=== PATIENT | male | born 1995 ===

== ENCOUNTER 2017-04-10 08:54 | Emergency (ER) | payer OTHER ==
[2017-04-10 09:43] VITALS: BMI 20.7
--- NOTE | 2017-04-10 10:38 | C.PDOC ---
History Of Present Illness 21 y/o male presents to ED with complaints of cough, body aches, chills and malaise for 2 days. Patient states he works overnight, was unable to work last night secondary to symptoms and came to ED for evaluation. Patient denies fever , neck pain, neck stiffness, nausea, vomiting or any other complaints at this time. Time Seen by Provider: 04/10/17 09:44 Chief Complaint (Nursing): Flu-like Symptoms History Per: Patient History/Exam Limitations: no limitations Onset/Duration Of Symptoms: Days Current Symptoms Are (Timing): Still Present Past Medical History Reviewed: Historical Data, Nursing Documentation, Vital Signs Vital Signs: Last Vital Signs Temp 99.3 F 04/10/17 09:34 Pulse 95 H 04/10/17 09:34 Resp 16 04/10/17 09:34 BP 130/84 04/10/17 09:34 Pulse Ox 99 04/10/17 10:40 - Medical History PMH: No Chronic Diseases Surgical History: No Surg Hx Family History: States: No Known Family Hx - Social History Hx Alcohol Use: No Hx Substance Use: Yes - Immunization History Hx Tetanus Toxoid Vaccination: No Hx Influenza Vaccination: No Hx Pneumococcal Vaccination: No Review Of Systems Constitutional: Positive for: Chills, Malaise. Negative for: Fever Respiratory: Positive for: Cough Gastrointestinal: Negative for: Nausea, Vomiting Skin: Negative for: Rash Physical Exam - Physical Exam Appears: Non-toxic, No Acute Distress Skin: Warm, Dry, No Rash Head: Atraumatic, Normacephalic Eye(s): bilateral: Normal Inspection Ear(s): Bilateral: Normal Oral Mucosa: Moist Throat: Normal, No Erythema, No Exudate Neck: Supple Cardiovascular: Rhythm Regular Respiratory: Normal Breath Sounds, No Rales, No Rhonchi, No Wheezing Gastrointestinal/Abdominal: Soft, No Tenderness, No Guarding, No Rebound Neurological/Psych: Oriented x3 ED Course And Treatment O2 Sat by Pulse Oximetry: 99 (RA) Pulse Ox Interpretation: Normal Medical Decision Making Medical Decision Making: Plan: Motrin, Tylenol, Tamaflu given Disposition Counseled Patient/Family Regarding: Diagnosis, Need For Followup, Rx Given - Disposition Referrals: [facility] [Outside] Disposition: HOME/ ROUTINE Disposition Time: 10:51 Condition: STABLE Prescriptions: Ibuprofen [Motrin] 600 mg PO TID #15 tab Oseltamivir [Tamiflu] 1 cap PO BID #10 cap Instructions: Influenza (ED) Forms: [facility] (Pashto), General Discharge Instructions, Work Excuse - POA Present On Arrival: None - Clinical Impression Clinical Impression: Influenza-like illness - Scribe Statement The provider has reviewed the documentation as recorded by the Atulibcheyenne Umanzor All medical record entries made by the Atulibe were at my direction and personally dictated by me. I have reviewed the chart and agree that the record accurately reflects my personal performance of the history, physical exam, medical decision making, and the department course for this patient. I have also personally directed, reviewed, and agree with the discharge instructions and disposition.
[2017-04-10 11:19] VITALS: BP 145/78; PULSE 102; RESP 20; TEMP 99; O2SAT 100
== END 2017-04-10 11:10 | disposition home or self-care (01) ==
LOC: C.ER 08:54
DX: J11.1 Influenza due to unidentified influenza virus with other respiratory manifestations (principal)

== ENCOUNTER 2017-05-24 04:02 | Emergency (ER) | payer OTHER ==
[2017-05-24 04:02] VITALS: BMI 20.7
[2017-05-24] MEDS ORDERED: Sodium Chloride 0.9% 1,000 ML IV ONE (04:35)
--- NOTE | 2017-05-24 04:35 | C.PDOC ---
History Of Present Illness Patient presents to ED with complaints of abdominal pain associated with vomiting and nausea that began yesterday. Ana is not tolerating PO. Denies any other physical complaints. Time Seen by Provider: 05/24/17 04:35 Chief Complaint (Nursing): Abdominal Pain History Per: Patient History/Exam Limitations: no limitations Onset/Duration Of Symptoms: Days (1) Current Symptoms Are (Timing): Still Present Severity: Moderate Pain Scale Rating Of: 4 Radiation Of Pain To:: None Quality Of Discomfort: Unable To Describe Associated Symptoms: Nausea, Vomiting. denies: Fever, Chills, Urinary Symptoms Exacerbating Factors: None Alleviating Factors: None Recent travel outside of the [place]: No Past Medical History Reviewed: Historical Data, Nursing Documentation, Vital Signs Vital Signs: Last Vital Signs Temp 97.7 F 05/24/17 04:09 Pulse 66 05/24/17 05:50 Resp 16 05/24/17 05:50 BP 102/64 05/24/17 05:50 Pulse Ox 97 05/24/17 05:50 - Medical History PMH: Kidney Stones Surgical History: No Surg Hx Family History: States: No Known Family Hx - Social History Hx Alcohol Use: Yes Hx Substance Use: Yes - Immunization History Hx Tetanus Toxoid Vaccination: No Hx Influenza Vaccination: No Hx Pneumococcal Vaccination: No Review Of Systems Constitutional: Negative for: Fever, Chills Gastrointestinal: Positive for: Nausea, Vomiting, Abdominal Pain. Negative for : Diarrhea Neurological: Negative for: Weakness, Numbness Psych: Negative for: Suicidal ideation Physical Exam - Physical Exam Appears: Non-toxic Skin: Warm, Dry Head: Normacephalic Eye(s): bilateral: Normal Inspection Oral Mucosa: Moist Neck: Supple Chest: Symmetrical, No Tenderness Cardiovascular: Rhythm Regular Respiratory: No Decreased Breath Sounds, No Rales, No Rhonchi, No Wheezing Gastrointestinal/Abdominal: Soft, Tenderness (mild epigastric ), No Distention, No Guarding, No Rebound Neurological/Psych: Oriented x3, Normal Speech, Normal Cognition ED Course And Treatment - Laboratory Results Result Diagrams: 05/24/17 04:50 05/24/17 04:50 O2 Sat by Pulse Oximetry: 100 (RA) Pulse Ox Interpretation: Normal Progress Note: Administered Pepcid, Toradol, Zofran and IV fluids. Ordered blood work and urinalysis. Disposition Counseled Patient/Family Regarding: Studies Performed, Diagnosis - Disposition Disposition Time: 04:35 Condition: FAIR Forms: [facility] (Romansh) - Clinical Impression Clinical Impression: Abdominal pain - Scribe Statement The provider has reviewed the documentation as recorded by the Scribe Socorro Celis All medical record entries made by the Scribe were at my direction and personally dictated by me. I have reviewed the chart and agree that the record accurately reflects my personal performance of the history, physical exam, medical decision making, and the department course for this patient. I have also personally directed, reviewed, and agree with the discharge instructions and disposition. Physician Patient Turnover Patient Signed Over To: Axel Damon Handoff Comments: pending labs and dispo
[2017-05-24] MEDS ORDERED: Sodium Chloride 0.9% 1,000 ML ONE (04:44)
[2017-05-24 04:57] LABS: BASO % 0.3 % (0.0-2.0); EOS # 0.2 K/uL (0.0-0.7); EOS % 1.4 % (0.0-4.0); HEMOGLOBIN 15.3 g/dL (12.0-18.0); LYMPH # 1.6 K/uL (1.0-4.3); LYMPH % 13.4 % (20.0-40.0); MEAN CELL VOLUME 88.4 fL (80.0-94.0); MEAN CORPUSCULAR HEMOGLOBIN 30.6 pg (27.0-31.0); MEAN CORPUSCULAR HGB CONC 34.6 g/dL (33.0-37.0); MONO # 0.9 K/uL (0.0-0.8); MONO % 7.7 % (0.0-10.0); NEUT # 9.5 K/uL (1.8-7.0); NEUT % 77.2 % (50.0-75.0); NRBC % 0.1 % (0.0-2.0); RBC 4.99 Mil/uL (4.40-5.90); RED CELL DISTRIBUTION WIDTH 13.4 % (11.5-14.5); WHITE BLOOD COUNT 12.3 K/uL (4.8-10.8)
[2017-05-24 05:06] LABS: URINE BACTERIA RARE (<OCC); URINE BILIRUBIN NEGATIVE (NEGATIVE); URINE BLOOD NEGATIVE (NEGATIVE); URINE CLARITY Turbid (Clear); URINE COLOR Yellow (YELLOW); URINE GLUCOSE (UA) NORMAL (Normal); URINE LEUKOCYTE ESTERASE NEG Leu/uL (Negative); URINE PROTEIN NEGATIVE (NEGATIVE); URINE UROBILINOGEN NORMAL mg/dL (0.2-1.0); WBC CLUMPS MOD /hpf
[2017-05-24 05:14] LABS: ALB/GLOB RATIO 1.2 (1.0-2.1); ALBUMIN 4.8 g/dL (3.5-5.0); ALT/SGPT 171 U/L (21-72); AST/SGOT 190 U/L (17-59); BLOOD UREA NITROGEN 13 mg/dL (9-20); CALCIUM 9.4 mg/dl (8.6-10.4); GFR AFRICAN-AMERICAN > 60; GFR NON-AFRICAN AMERICAN > 60; LIPASE 52 U/L (23-300)
[2017-05-24] MEDS ORDERED: Morphine 4 MG/ML VIAL ONE (05:15)
[2017-05-24] MEDS ORDERED: Iodixanol 320 MG/ML 100 ML BOTTLE IV ONE (05:54)
--- NOTE | 2017-05-24 06:46 | CT ---
EXAM: CT Abdomen and Pelvis With Intravenous Contrast CLINICAL HISTORY: 21 years old, male; Pain; Abdominal pain; Additional info: Abd pain TECHNIQUE: Axial computed tomography images of the abdomen and pelvis with intravenous contrast. All CT scans at this facility use one or more dose reduction techniques, viz.: automated exposure control; ma/kV adjustment per patient size (including targeted exams where dose is matched to indication; i.e. head); or iterative reconstruction technique. 570 images are submitted. Coronal and sagittal reformatted images were created and reviewed. CONTRAST: 100 mL of [id number] administered intravenously. COMPARISON: No relevant prior studies available. FINDINGS: Lower thorax: No acute findings. ABDOMEN: Liver: Unremarkable. No mass. Gallbladder and bile ducts: Unremarkable. No ductal dilation. Pancreas: Unremarkable. No mass. No ductal dilation. Spleen: Unremarkable. No splenomegaly. Adrenals: Unremarkable. No mass. Kidneys and ureters: Unremarkable. No solid mass. No hydronephrosis. Stomach and bowel: Large amount of stool in the colon and nonspecific right colonic thickening. Correlation with patient's clinical history of constipation versus stool related colitis versus nonspecific colitis is recommended. Possible diverticulosis. Nonspecific fluid-filled distal small bowel. Appendix: The appendix not identified with complete certainty due to unopacified cecum and distal small bowel. There is lack of intra-abdominal fat. If clinical concern remains, a repeat study with thin sections after an appropriate time interval may allow oral contrast to opacify the cecum. PELVIS: Bladder: Unremarkable. Reproductive: Possible hydrocele. ABDOMEN and PELVIS: Intraperitoneal space: Unremarkable. No free air. No significant fluid collection. Bones/joints: No acute fracture. No dislocation. Soft tissues: Unremarkable. Vasculature: Unremarkable. No abdominal aortic aneurysm. Lymph nodes: Unremarkable. No enlarged lymph nodes. IMPRESSION: 1. Large amount of stool in the colon and nonspecific right colonic thickening. Correlation with patient's clinical history of constipation versus stool related colitis versus nonspecific colitis is recommended.
[2017-05-24 06:57] VITALS: O2SAT 100
[2017-05-24 07:30] VITALS: BP 114/68; PULSE 80; RESP 18; TEMP 98
== END 2017-05-24 07:33 | disposition home or self-care (01) ==
LOC: C.ER 04:02
DX: R10.9 Unspecified abdominal pain (principal)
CPT/HCPCS: 74177; 80053; 81001; 83690; 85025; 96361; 96374; 96375; 99285; J1885; J2270; J2405; J7040; Q9967

== ENCOUNTER 2017-05-25 07:25 | Observation (INO) | payer OTHER ==
[2017-05-25 07:33] VITALS: BMI 19.7
[2017-05-25] MEDS ORDERED: Sodium Chloride 0.9% 1,000 ML IV ONE (07:54)
[2017-05-25] MEDS ORDERED: Sodium Chloride 0.9% 1,000 ML ONE (08:09)
[2017-05-25 08:14] LABS: BASO % 0.3 % (0.0-2.0); EOS % 0.2 % (0.0-4.0); HEMOGLOBIN 13.6 g/dL (12.0-18.0); LYMPH # 1.3 K/uL (1.0-4.3); LYMPH % 13.2 % (20.0-40.0); MEAN CELL VOLUME 88.7 fL (80.0-94.0); MEAN CORPUSCULAR HEMOGLOBIN 30.9 pg (27.0-31.0); MEAN CORPUSCULAR HGB CONC 34.8 g/dL (33.0-37.0); MEAN PLATELET VOLUME 8.6 fL (7.2-11.7); NEUT # 7.8 K/uL (1.8-7.0); NEUT % 76.3 % (50.0-75.0); NRBC % 0.1 % (0.0-2.0); RBC 4.39 Mil/uL (4.40-5.90); RED CELL DISTRIBUTION WIDTH 13.2 % (11.5-14.5); WHITE BLOOD COUNT 10.2 K/uL (4.8-10.8)
[2017-05-25 08:45] LABS: ALB/GLOB RATIO 1.2 (1.0-2.1); ALBUMIN 4.2 g/dL (3.5-5.0); ALT/SGPT 117 U/L (21-72); AST/SGOT 83 U/L (17-59); BLOOD UREA NITROGEN 10 mg/dL (9-20); CALCIUM 8.5 mg/dl (8.6-10.4); GFR AFRICAN-AMERICAN > 60; GFR NON-AFRICAN AMERICAN > 60; LIPASE 42 U/L (23-300)
[2017-05-25 08:51] LABS: URINE AMORPHOUS SEDIMENT MODERATE /ul (<OCC); URINE BILIRUBIN NEGATIVE (NEGATIVE); URINE BLOOD NEGATIVE (NEGATIVE); URINE CLARITY Turbid (Clear); URINE COLOR Red (YELLOW); URINE GLUCOSE (UA) NORMAL (Normal); URINE LEUKOCYTE ESTERASE NEG Leu/uL (Negative); URINE PROTEIN NEGATIVE (NEGATIVE); URINE UROBILINOGEN NORMAL mg/dL (0.2-1.0)
[2017-05-25 09:27] LABS: BARBITURATES, UR NEGATIVE (NEGATIVE); BENZODIAZEPINES, UR NEGATIVE (NEGATIVE); OPIATES, UR NEGATIVE (NEGATIVE); PHENCYCLIDINE, UR NEGATIVE (NEGATIVE)
--- NOTE | 2017-05-25 10:43 | C.PDOC ---
History Of Present Illness 21 year old male presents with PMH of kidney stone c/o abdominal pain associated with nausea and vomiting for the last 3 days. Pt was seen yesterday at [facility], had CT scan done which was consistent with constipation vs colitis. Pt went home, took mag citrate and notes having diarrhea after. Pt returns to ED today stating he unable to tolerate any PO intake at home. Otherwise, denies known sick contact, fever, chills, hematemisis, hematochezia, chest pain, headache or any other associated symptoms at this time. Time Seen by Provider: 05/25/17 07:41 Chief Complaint (Nursing): Abdominal Pain History Per: Patient History/Exam Limitations: no limitations Onset/Duration Of Symptoms: Days (2) Current Symptoms Are (Timing): Still Present Location Of Pain/Discomfort: Diffuse Radiation Of Pain To:: None Quality Of Discomfort: "Pain" Associated Symptoms: Nausea, Vomiting, Diarrhea. denies: Back Pain, Chest Pain , Urinary Symptoms Exacerbating Factors: None Alleviating Factors: None Recent travel outside of the [place]: No Additional History Per: Patient Past Medical History Reviewed: Historical Data, Nursing Documentation, Vital Signs Vital Signs: Last Vital Signs Temp 98 F 05/25/17 12:21 Pulse 90 05/25/17 12:21 Resp 16 05/25/17 12:21 BP 136/70 05/25/17 12:21 Pulse Ox 98 05/25/17 12:21 - Medical History PMH: Kidney Stones, Chronic Kidney Disease Family History: States: Diabetes, Hypertension - Social History Hx Alcohol Use: Yes Hx Substance Use: Yes (marijauna) - Immunization History Hx Tetanus Toxoid Vaccination: No Hx Influenza Vaccination: No Hx Pneumococcal Vaccination: No Review Of Systems Except As Marked, All Systems Reviewed And Found Negative. Constitutional: Negative for: Fever, Chills Gastrointestinal: Positive for: Nausea, Vomiting, Abdominal Pain, Diarrhea. Negative for: Melena, Hematochezia, Hematemesis Genitourinary: Negative for: Dysuria, Frequency, Hematuria Musculoskeletal: Negative for: Back Pain Physical Exam - Physical Exam Appears: Non-toxic, No Acute Distress Skin: Normal Color, Warm, Dry Head: Atraumatic, Normacephalic Eye(s): bilateral: Normal Inspection, EOMI Nose: Normal Oral Mucosa: Moist Neck: Normal ROM, Supple Chest: Symmetrical Cardiovascular: Rhythm Regular Respiratory: Normal Breath Sounds, No Rales, No Rhonchi, No Wheezing Gastrointestinal/Abdominal: Soft, Tenderness (diffuse), No Guarding, No Rebound Back: No CVA Tenderness, No Vertebral Tenderness Extremity: Normal ROM Neurological/Psych: Oriented x3, Normal Speech ED Course And Treatment - Laboratory Results Result Diagrams: 05/25/17 08:03 05/25/17 08:03 O2 Sat by Pulse Oximetry: 100 (RA) Pulse Ox Interpretation: Normal Progress Note: Labs and CT scan from yesterday's visit was reviewed. Blood work , UA ordered and reviewed today. Pt was given Pepcid, Toradol, Zofran, and IV fluids. On re-evaluation, pt states nausea has improved. PO challenge was ordered. Pt vomited immediately. Reglan was ordered. On re-eval, pt states abdominal pain and nausea still persists. Case discussed with Dr. Graf who agrees upon plan and admission. Disposition - Disposition Disposition: HOSPITALIZED Disposition Time: 12:00 Condition: STABLE - Clinical Impression Clinical Impression: Colitis, Constipation, Intractable vomiting - PA / LEAD COATER / Resident Statement MD/DO has reviewed & agrees with the documentation as recorded. - Scribe Statement The provider has reviewed the documentation as recorded by the Scribe Caleb Stewart All medical record entries made by the Atulibe were at my direction and personally dictated by me. I have reviewed the chart and agree that the record accurately reflects my personal performance of the history, physical exam, medical decision making, and the department course for this patient. I have also personally directed, reviewed, and agree with the discharge instructions and disposition.
--- NOTE | 2017-05-25 12:22 | CP.PCM.HP ---
History of Present Illness - History of Present Illness History of Present Illness: PGY2 Resident - Medicine H&P CC: Constipation + nausea/vomiting for the past 3 days HPI: This 21 year old Male with PMHx of +kidney stone in 2017 s/p lithotripsy + L ureter stent (removed 2 wks later) - presents c/o constipation and nausea/ vomiting for the past 3 days. His last normal BM was 1 weeks ago. Throughout last week, he became increasingly more constipated with decreasing stool caliber , to the point that he felt stomach discomfort beginning on Thr05/22/17. He went to work that day, took 1 dose of Pepto-bismol and drank 1 glass of lemon water w/salt, with no relief. Friday he woke up, vomited once, and again went to work. Friday night into Friday, he again vomited, his abdominal pain increased, spurring his 1st visit to the ED. CT abdomen showed a large qty of stool in the colon and R colonic thickening (possible colitis). He was discharged with instructions to take Mag-Citrate. He did so later that day ( friday), after which had several watery bowel movements. However, his abdominal pain persisted and he again vomited overnight, spuring his 2nd visit to the ED. Denies f/c, headache, dizziness, dysuria, sick contacts, weight change, hematemesis, or hematoschezia. Denies hx of HIV or Hepatitis. Of note, He is very active, works out daily, and reports staring Whey protein supplementation (2 scoops daily) 2 weeks ago. 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 PMHx: kidney stones 2017 s/p lithotripsy + L ureter stent PSHx: lithotripsy + L ureter stent in 2017 (removed after 2 wks) Meds: none Allergies: NKDA FamHx: Dad w/ DM, HTN; Mom healthy SocHx: Social ETOH (1 beer/mo); Quit tobacco 2yrs ago (formerly 1ppd x5yrs); + Marijuana (1 blunt per day) PMD: none Review of Systems: -Gen: denies fever, chills, headache, lethargy, weakness. -HEENT: denies dizziness, change in vision, change in hearing, sore throat, dysphagia, nasal congestion, mucous. -Cardio: denies chest pain, palpitations, lower extremity edema, orthopnea. -Resp: denies cough, dyspnea, hemoptysis, wheezing, pain on inspiration. -GI: +abdominal discomfort/fullness, +nausea/vomiting, +diarrhea/constipation; denies overt abdominal pain, hematochezia, hematemesis. -: denies dysuria, urinary freq, incontinence, hematuria, change in urinary stream. -MSK: denies back pain, muscle weakness, radiating pain. -Skin: denies itching, rash, lesions. -Neuro: denies confusion, numbness, tingling, focal weakness, radicular pain, syncope. -Psych: denies anxiety, depression, H/I, S/I, hallucinations. Present on Admission - Present on Admission Any Indicators Present on Admission: No History of DVT/PE: No History of Uncontrolled Diabetes: No Urinary Catheter: No Decubitus Ulcer Present: No Past Patient History - Infectious Disease Hx of Infectious Diseases: None - Past Social History Smoking Status: Never Smoked - RENAL Hx Chronic Kidney Disease: Yes Hx Kidney Stones: Yes - PSYCHIATRIC Hx Substance Use: Yes (maristuartuna) - SURGICAL HISTORY Hx Surgeries: No - ANESTHESIA Hx Anesthesia: No Hx Anesthesia Reactions: No Meds Allergies/Adverse Reactions: Allergies Allergy/AdvReac Type Severity Reaction Status Date / Time No Known Allergies Allergy Verified 05/25/17 07:32 Physical Exam - Constitutional Appears: Non-toxic, No Acute Distress - Head Exam Head Exam: ATRAUMATIC, NORMAL INSPECTION - Eye Exam Eye Exam: EOMI, Normal appearance, PERRL - ENT Exam ENT Exam: Mucous Membranes Dry - Neck Exam Neck exam: Negative for: Lymphadenopathy - Respiratory Exam Respiratory Exam: Clear to Auscultation Bilateral, NORMAL BREATHING PATTERN. absent: Wheezes - Cardiovascular Exam Cardiovascular Exam: REGULAR RHYTHM, +S1, +S2, Systolic Murmur (holocystolic murmer at apex) - GI/Abdominal Exam GI & Abdominal Exam: Guarding, Hyperactive Bowel Sounds, Soft, Tenderness (deep pressure sensation to palpation, no overt tenderness). absent: Distended - Extremities Exam Extremities exam: Positive for: normal inspection. Negative for: pedal edema, tenderness - Back Exam Back exam: NORMAL INSPECTION. absent: CVA tenderness (L), CVA tenderness (R) - Neurological Exam Neurological exam: Alert, CN II-XII Intact, Oriented x3 - Psychiatric Exam Psychiatric exam: Normal Affect, Normal Mood - Skin Skin Exam: Dry, Intact, Normal Color, Warm Results - Vital Signs Recent Vital Signs: Last Vital Signs Temp 98.2 F 05/25/17 11:25 Pulse 75 05/25/17 11:25 Resp 14 05/25/17 11:25 BP 130/70 05/25/17 11:25 Pulse Ox 98 05/25/17 11:25 - Labs Result Diagrams: 05/25/17 08:03 05/25/17 08:03 Labs: Laboratory Results - last 24 hr 05/25/17 05/25/17 05/25/17 08:03 08:03 08:17 WBC 10.2 RBC 4.39 L Hgb 13.6 Hct 39.0 MCV 88.7 MCH 30.9 MCHC 34.8 RDW 13.2 Plt Count 248 MPV 8.6 Neut % (Auto) 76.3 H Lymph % (Auto) 13.[address] % (Auto) 10.0 Eos % (Auto) 0.2 Baso % (Auto) 0.3 Neut # (Auto) 7.8 H Lymph # (Auto) 1.3 [place] # (Auto) 1.0 H Eos # (Auto) 0.0 Baso # (Auto) 0.0 Sodium 141 Potassium 3.9 Chloride 101 Carbon Dioxide 26 Anion Gap 17 BUN 10 Creatinine 0.9 Est GFR ( Amer) > 60 Est GFR (Non-Af Amer) > 60 Random Glucose 108 Calcium 8.5 L Total Bilirubin 0.8 AST 83 H D ALT 117 H D Alkaline Phosphatase 47 Total Protein 7.5 Albumin 4.2 Globulin 3.3 Albumin/Globulin Ratio 1.2 Lipase 42 Urine Color Red Urine Clarity Turbid Urine pH 9.0 Ur Specific [place] 1.013 Urine Protein Negative Urine Glucose (UA) Normal Urine Ketones Negative Urine Blood Negative Urine Nitrate Negative Urine Bilirubin Negative Urine Urobilinogen Normal Ur Leukocyte Esterase Neg Urine RBC (Auto) 1 Amorphous Sediment Moderate H Urine Opiates Screen Urine Methadone Screen Ur Barbiturates Screen Ur Phencyclidine Scrn Ur Amphetamines Screen U Benzodiazepines Scrn U Oth Cocaine Metabols U Cannabinoids Screen Alcohol, Quantitative < 10 05/25/17 08:17 WBC RBC Hgb Hct MCV MCH MCHC RDW Plt Count MPV Neut % (Auto) Lymph % (Auto) [place] % (Auto) Eos % (Auto) Baso % (Auto) Neut # (Auto) Lymph # (Auto) [place] # (Auto) Eos # (Auto) Baso # (Auto) Sodium Potassium Chloride Carbon Dioxide Anion Gap BUN Creatinine Est GFR ( Amer) Est GFR (Non-Af Amer) Random Glucose Calcium Total Bilirubin AST ALT Alkaline Phosphatase Total Protein Albumin Globulin Albumin/Globulin Ratio Lipase Urine Color Urine Clarity Urine pH Ur Specific [place] Urine Protein Urine Glucose (UA) Urine Ketones Urine Blood Urine Nitrate Urine Bilirubin Urine Urobilinogen Ur Leukocyte Esterase Urine RBC (Auto) Amorphous Sediment Urine Opiates Screen Negative Urine Methadone Screen Negative Ur Barbiturates Screen Negative Ur Phencyclidine Scrn Negative Ur Amphetamines Screen Negative U Benzodiazepines Scrn Negative U Oth Cocaine Metabols Negative U Cannabinoids Screen Positive H Alcohol, Quantitative Assessment & Plan - Assessment and Plan (Free Text) Assessment: Intractable Nausea / Vomiting * Zofran 4mg IVP q6H prn, n/v * Reglan 10mg IVP q6H prn, n/v * Alternate every 3 hours * CLD; advance as tolerated * UDS: +marijuana * Status- acute Stool in Colon / Possible Colitis * Patient very constipated * Prune juice as tolerated * Colace 100mg PO TID * Cipro 400mg IVPB Q12H * Flagyl 500mg IVPB Q8H * D/C whey protein as this may cause constipation in certain individuals * Status- acute Diarrhea * f/u c.diff, stool culture, ova/parasites x3 * D/C mag-citrate * possible exposure to salmonella via raw chicken/tuna * Status- acute Marijuana Use * advised to abstain from marijuana use Transaminitis * AST 83H / ALT 117H * f/u Hep panel, HIV panel * possible exposure to salmonella via raw chicken/tuna * Status- acute Prophylaxis * Protonix 40mg IVP qD * SCDs * DVT risk score = 0; no anticoagulation needed. Code status - full code Contact / Decision maker if pt looses capacity: Shasha Velasquez (cousin): Case discussed with Dr. Yung Stewart. Sukumar Arenas, PGY2 - Date & Time Date: 05/25/17 Time: 12:20
[2017-05-25] MEDS: metroNIDAZOLE IV 500 mg/100 ml 500 MG/100 ML BAG IVPB SCH ×2 (14:16→21:00)
[2017-05-25] MEDS: Ciprofloxacin 400mg/200ml D5W 400 MG/200 ML BAG IVPB SCH (14:17)
[2017-05-25] MEDS: Sodium Chloride 0.9% 1,000 ML IV SCH ×2 (14:17→23:53)
[2017-05-25 16:05] VITALS: RESP 20
[2017-05-26] MEDS: Ciprofloxacin 400mg/200ml D5W 400 MG/200 ML BAG IVPB SCH (01:05)
[2017-05-26] MEDS: Sodium Chloride 0.9% 1,000 ML IV SCH ×2 (02:45→09:38)
[2017-05-26] MEDS: metroNIDAZOLE IV 500 mg/100 ml 500 MG/100 ML BAG IVPB SCH (05:53)
[2017-05-26 07:32] LABS: BASO % 0.6 % (0.0-2.0); EOS # 0.1 K/uL (0.0-0.7); EOS % 2.1 % (0.0-4.0); HEMOGLOBIN 13.1 g/dL (12.0-18.0); LYMPH # 1.8 K/uL (1.0-4.3); LYMPH % 32.1 % (20.0-40.0); MEAN CELL VOLUME 89.9 fL (80.0-94.0); MEAN CORPUSCULAR HEMOGLOBIN 31.4 pg (27.0-31.0); MEAN CORPUSCULAR HGB CONC 34.9 g/dL (33.0-37.0); MEAN PLATELET VOLUME 8.9 fL (7.2-11.7); MONO # 0.7 K/uL (0.0-0.8); MONO % 13.2 % (0.0-10.0); NEUT # 2.9 K/uL (1.8-7.0); RBC 4.18 Mil/uL (4.40-5.90); RED CELL DISTRIBUTION WIDTH 13.3 % (11.5-14.5); WHITE BLOOD COUNT 5.6 K/uL (4.8-10.8)
[2017-05-26 07:48] LABS: ALB/GLOB RATIO 1.3 (1.0-2.1); ALBUMIN 3.8 g/dL (3.5-5.0); ALT/SGPT 85 U/L (21-72); AST/SGOT 45 U/L (17-59); BLOOD UREA NITROGEN 9 mg/dL (9-20); CALCIUM 8.8 mg/dl (8.6-10.4); GFR AFRICAN-AMERICAN > 60; GFR NON-AFRICAN AMERICAN > 60
[2017-05-26 08:02] VITALS: BP 101/52; PULSE 77; TEMP 97.6; O2SAT 97
[2017-05-26 08:27] LABS: HEPATITIS B SURFACE AG Negative (NEGATIVE)
[2017-05-26 08:33] LABS: HEPATITIS A IGM NEGATIVE (NEGATIVE); HEPATITIS B CORE AB NEGATIVE (NEGATIVE)
[2017-05-26 08:45] LABS: HEPATITIS C ANTIBODY NEGATIVE (NEGATIVE)
--- NOTE | 2017-05-26 12:40 | CARD ---
APPROVED REPORT EKG Measurement Heart [id number] <Conclusion> Normal sinus rhythm Normal ECG
--- NOTE | 2017-05-26 13:10 | CP.PCM.DIS ---
<Candido Velasco - Last Filed: 05/26/17 13:32> Provider - Provider Date of Admission: 05/25/17 10:49 Attending physician: Sukumar Graf DO Primary care physician: PMD: none Time Spent in preparation of Discharge (in minutes): 38 Hospital Course - Lab Results Lab Results: Most Recent Lab Values WBC 5.6 K/uL (4.8-10.8) 05/26/17 07:24 RBC 4.18 Mil/uL (4.40-5.90) L 05/26/17 07:24 Hgb 13.1 g/dL (12.0-18.0) 05/26/17 07:24 Hct 37.6 % (35.0-51.0) 05/26/17 07:24 MCV 89.9 fL (80.0-94.0) 05/26/17 07:24 MCH 31.4 pg (27.0-31.0) H 05/26/17 07:24 MCHC 34.9 g/dL (33.0-37.0) 05/26/17 07:24 RDW 13.3 % (11.5-14.5) 05/26/17 07:24 Plt Count 227 K/uL (130-400) 05/26/17 07:24 MPV 8.9 fL (7.2-11.7) 05/26/17 07:24 Neut % (Auto) 52.0 % (50.0-75.0) 05/26/17 07:24 Lymph % (Auto) 32.1 % (20.0-40.0) 05/26/17 07:24 Cecil % (Auto) 13.2 % (0.0-10.0) H 05/26/17 07:24 Eos % (Auto) 2.1 % (0.0-4.0) 05/26/17 07:24 Baso % (Auto) 0.6 % (0.0-2.0) 05/26/17 07:24 Neut # (Auto) 2.9 K/uL (1.8-7.0) 05/26/17 07:24 Lymph # (Auto) 1.8 K/uL (1.0-4.3) 05/26/17 07:24 Cecil # (Auto) 0.7 K/uL (0.0-0.8) 05/26/17 07:24 Eos # (Auto) 0.1 K/uL (0.0-0.7) 05/26/17 07:24 Baso # (Auto) 0.0 K/uL (0.0-0.2) 05/26/17 07:24 Sodium 142 mmol/L (132-148) 05/26/17 07:24 Potassium 4.1 mmol/L (3.6-5.2) 05/26/17 07:24 Chloride 106 mmol/L (98-107) 05/26/17 07:24 Carbon Dioxide 25 mmol/L (22-30) 05/26/17 07:24 Anion Gap 16 (10-20) 05/26/17 07:24 BUN 9 mg/dL (9-20) 05/26/17 07:24 Creatinine 0.8 mg/dL (0.8-1.5) 05/26/17 07:24 Est GFR ( Amer) > 60 05/26/17 07:24 Est GFR (Non-Af Amer) > 60 05/26/17 07:24 Random Glucose 88 mg/dL (75-110) 05/26/17 07:24 Calcium 8.8 mg/dl (8.6-10.4) 05/26/17 07:24 Phosphorus 2.9 mg/dL (2.5-4.5) 05/26/17 07:24 Magnesium 1.8 mg/dL (1.6-2.3) 05/26/17 07:24 Total Bilirubin 0.8 mg/dL (0.2-1.3) 05/26/17 07:24 AST 45 U/L (17-59) 05/26/17 07:24 ALT 85 U/L (21-72) H D 05/26/17 07:24 Alkaline Phosphatase 39 U/L (38-126) 05/26/17 07:24 Total Protein 6.7 g/dL (6.3-8.3) 05/26/17 07:24 Albumin 3.8 g/dL (3.5-5.0) 05/26/17 07:24 Globulin 2.8 gm/dL (2.2-3.9) 05/26/17 07:24 Albumin/Globulin Ratio 1.3 (1.0-2.1) 05/26/17 07:24 Lipase 42 U/L (23-300) 05/25/17 08:03 Urine Color Red (YELLOW) 05/25/17 08:17 Urine Clarity Turbid (Clear) 05/25/17 08:17 Urine pH 9.0 (5.0-8.0) 05/25/17 08:17 Ur Specific Manvel 1.013 (1.003-1.030) 05/25/17 08:17 Urine Protein Negative mg/dL (NEGATIVE) 05/25/17 08:17 Urine Glucose (UA) Normal mg/dL (Normal) 05/25/17 08:17 Urine Ketones Negative mg/dL (NEGATIVE) 05/25/17 08:17 Urine Blood Negative (NEGATIVE) 05/25/17 08:17 Urine Nitrate Negative (NEGATIVE) 05/25/17 08:17 Urine Bilirubin Negative (NEGATIVE) 05/25/17 08:17 Urine Urobilinogen Normal mg/dL (0.2-1.0) 05/25/17 08:17 Ur Leukocyte Esterase Neg Sandee/uL (Negative) 05/25/17 08:17 Urine RBC (Auto) 1 /hpf (0-3) 05/25/17 08:17 Amorphous Sediment Moderate /ul (<OCC) H 05/25/17 08:17 Urine Opiates Screen Negative (NEGATIVE) 05/25/17 08:17 Urine Methadone Screen Negative (NEGATIVE) 05/25/17 08:17 Ur Barbiturates Screen Negative (NEGATIVE) 05/25/17 08:17 Ur Phencyclidine Scrn Negative (NEGATIVE) 05/25/17 08:17 Ur Amphetamines Screen Negative (NEGATIVE) 05/25/17 08:17 U Benzodiazepines Scrn Negative (NEGATIVE) 05/25/17 08:17 U Oth Cocaine Metabols Negative (NEGATIVE) 05/25/17 08:17 U Cannabinoids Screen Positive (NEGATIVE) H 05/25/17 08:17 Alcohol, Quantitative < 10 mg/dl (0-10) 05/25/17 08:03 Hepatitis A IgM Ab Negative (NEGATIVE) 05/25/17 16:41 Hep Bs Antigen Negative (NEGATIVE) 05/25/17 16:41 Hep B Core IgM Ab Negative (NEGATIVE) 05/25/17 16:41 Hepatitis C Antibody Negative (NEGATIVE) 05/25/17 16:41 HIV 1&2 Antibody Screen Negative (NEGATIVE) 05/25/17 16:41 - Hospital Course Hospital Course: PGY2 Resident - Medicine H&P CC: Constipation + nausea/vomiting for the past 3 days HPI: This 21 year old Male with PMHx of +kidney stone in 2017 s/p lithotripsy + L ureter stent (removed 2 wks later) - presents c/o constipation and nausea/ vomiting for the past 3 days. His last normal BM was 1 weeks ago. Throughout last week, he became increasingly more constipated with decreasing stool caliber , to the point that he felt stomach discomfort beginning on Thr05/22/17. He went to work that day, took 1 dose of Pepto-bismol and drank 1 glass of lemon water w/salt, with no relief. Friday he woke up, vomited once, and again went to work. Friday night into Friday, he again vomited, his abdominal pain increased, spurring his 1st visit to the ED. CT abdomen showed a large qty of stool in the colon and R colonic thickening (possible colitis). He was discharged with instructions to take Mag-Citrate. He did so later that day ( friday), after which had several watery bowel movements. However, his abdominal pain persisted and he again vomited overnight, spuring his 2nd visit to the ED. Denies f/c, headache, dizziness, dysuria, sick contacts, weight change, hematemesis, or hematoschezia. Denies hx of HIV or Hepatitis. Of note, He is very active, works out daily, and reports staring Whey protein supplementation (2 scoops daily) 2 weeks ago. 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 PMHx: kidney stones 2017 s/p lithotripsy + L ureter stent PSHx: lithotripsy + L ureter stent in 2017 (removed after 2 wks) Meds: none Allergies: NKDA FamHx: Dad w/ DM, HTN; Mom healthy SocHx: Social ETOH (1 beer/mo); Quit tobacco 2yrs ago (formerly 1ppd x5yrs); + Marijuana (1 blunt per day) PMD: none HOSPITAL COURSE: This is a 21 year old male who was treated for intractable nausea/vomiting and abdominal pain and constipation. It's possible his symptoms were due to his recent diet/lifestyle changes (he recently began taking whey protein and began an intense workout regiment) OR possibly due to his daily marijuana use which has shown to disrupt GI function. He was treated with zofran, reglan and given antibiotics (cipro, flagyl). His constipation was resolved with colace, mag- citrate and prune juice. He was tolerating his diet by discharge without N/V. His LFTs were elevated on admission, they have downtrended to AST NORMAL ALT 85. CT abdomen showed a large qty of stool in the colon and R colonic thickening (possible colitis). Clinically he did not seem as if he had an infectious process (also afebrile, no leukocytosis) however he will be given 7 days of cipro and flagyl on discharge. A Hep Panel was NEGATIVE and an HIV screen was also NEGATIVE. A salmonella and c-diff test were ordered and are pending. A holosystolic murmur was suspected on physical exam - an ECHO was ordered - the official read is still pending. Urinanalysis was NEGATIVE. Lipase was NEGATIVE. Discharge Exam - Head Exam Head Exam: ATRAUMATIC, NORMAL INSPECTION - Eye Exam Eye Exam: EOMI Pupil Exam: PERRL - ENT Exam ENT Exam: Mucous Membranes Moist - Neck Exam Neck exam: Normal Inspection - Respiratory Exam Respiratory Exam: Clear to PA & Lateral, NORMAL BREATHING PATTERN. absent: Rales, Rhonchi, Wheezes - Cardiovascular Exam Cardiovascular Exam: REGULAR RHYTHM, +S1, +S2, Systolic Murmur. absent: Bradycardia, Tachycardia, JVD Additional comments: questionable holosystolic murmur at apex - GI/Abdominal Exam GI & Abdominal Exam: Normal Bowel Sounds, Soft. absent: Distended, Firm, Guarding, Rebound, Rigid, Tenderness - Rectal Exam Rectal Exam: absent: Deferred - Extremities Exam Extremities exam: normal capillary refill, normal inspection, pedal pulses present - Back Exam Back exam: NORMAL INSPECTION. absent: CVA tenderness (L), CVA tenderness (R) - Neurological Exam Neurological exam: Alert, Oriented x3 - Psychiatric Exam Psychiatric exam: Normal Affect, Normal Mood - Skin Skin Exam: Intact, Normal Color, Warm Discharge Plan - Discharge Medications Prescriptions: Ciprofloxacin 500 mg PO BID 7 Days #14 tab Metronidazole [Flagyl] 500 mg PO TID 7 Days #21 tablet - Follow Up Plan Condition: STABLE Disposition: HOME/ ROUTINE Instructions: Diarrhea in Adolescents and Adults, Ciprofloxacin (Systemic), Clear Liquid Diet, Metronidazole (Systemic), Nausea and Vomiting, Adult (DC), Acute Abdominal Pain (DC) Additional Instructions: Patient is stable for discharge. Patient is to take the following antibiotics for the next 7 days: (1) Ciproflaxacin 500mg orally twice a day - once in the morning and once at bedtime (2) Flagyl 500mg orally three times a day - once in the morning and once in the afternoon and once at bedtime Patient is to be advised that he must refrain from alcohol while taking these antibiotics. Alcohol use while taking these antibiotics could cause nausea/ vomiting/diarrhea. Patient should connect himself with a Primary Medical Doctor so he may be referred to a Manager Utilization Management (GI). A GI doctor can help him elucidate the cause of his symptoms. If symptoms worsen - patient should return to the ER. Referrals: Zara Robertson MD [Staff Provider] - <Dolores Simpson V - Last Filed: 05/26/17 21:11> Provider - Provider Date of Admission: 05/25/17 10:49 Attending physician: Sukumar Graf, Hospital Course - Lab Results Lab Results: Most Recent Lab Values WBC 5.6 K/uL (4.8-10.8) 05/26/17 07:24 RBC 4.18 Mil/uL (4.40-5.90) L 05/26/17 07:24 Hgb 13.1 g/dL (12.0-18.0) 05/26/17 07:24 Hct 37.6 % (35.0-51.0) 05/26/17 07:24 MCV 89.9 fL (80.0-94.0) 05/26/17 07:24 MCH 31.4 pg (27.0-31.0) H 05/26/17 07:24 MCHC 34.9 g/dL (33.0-37.0) 05/26/17 07:24 RDW 13.3 % (11.5-14.5) 05/26/17 07:24 Plt Count 227 K/uL (130-400) 05/26/17 07:24 MPV 8.9 fL (7.2-11.7) 05/26/17 07:24 Neut % (Auto) 52.0 % (50.0-75.0) 05/26/17 07:24 Lymph % (Auto) 32.1 % (20.0-40.0) 05/26/17 07:24 Cecil % (Auto) 13.2 % (0.0-10.0) H 05/26/17 07:24 Eos % (Auto) 2.1 % (0.0-4.0) 05/26/17 07:24 Baso % (Auto) 0.6 % (0.0-2.0) 05/26/17 07:24 Neut # (Auto) 2.9 K/uL (1.8-7.0) 05/26/17 07:24 Lymph # (Auto) 1.8 K/uL (1.0-4.3) 05/26/17 07:24 Cecil # (Auto) 0.7 K/uL (0.0-0.8) 05/26/17 07:24 Eos # (Auto) 0.1 K/uL (0.0-0.7) 05/26/17 07:24 Baso # (Auto) 0.0 K/uL (0.0-0.2) 05/26/17 07:24 Sodium 142 mmol/L (132-148) 05/26/17 07:24 Potassium 4.1 mmol/L (3.6-5.2) 05/26/17 07:24 Chloride 106 mmol/L (98-107) 05/26/17 07:24 Carbon Dioxide 25 mmol/L (22-30) 05/26/17 07:24 Anion Gap 16 (10-20) 05/26/17 07:24 BUN 9 mg/dL (9-20) 05/26/17 07:24 Creatinine 0.8 mg/dL (0.8-1.5) 05/26/17 07:24 Est GFR ( Amer) > 60 05/26/17 07:24 Est GFR (Non-Af Amer) > 60 05/26/17 07:24 Random Glucose 88 mg/dL (75-110) 05/26/17 07:24 Calcium 8.8 mg/dl (8.6-10.4) 05/26/17 07:24 Phosphorus 2.9 mg/dL (2.5-4.5) 05/26/17 07:24 Magnesium 1.8 mg/dL (1.6-2.3) 05/26/17 07:24 Total Bilirubin 0.8 mg/dL (0.2-1.3) 05/26/17 07:24 AST 45 U/L (17-59) 05/26/17 07:24 ALT 85 U/L (21-72) H D 05/26/17 07:24 Alkaline Phosphatase 39 U/L (38-126) 05/26/17 07:24 Total Protein 6.7 g/dL (6.3-8.3) 05/26/17 07:24 Albumin 3.8 g/dL (3.5-5.0) 05/26/17 07:24 Globulin 2.8 gm/dL (2.2-3.9) 05/26/17 07:24 Albumin/Globulin Ratio 1.3 (1.0-2.1) 05/26/17 07:24 Lipase 42 U/L (23-300) 05/25/17 08:03 Urine Color Red (YELLOW) 05/25/17 08:17 Urine Clarity Turbid (Clear) 05/25/17 08:17 Urine pH 9.0 (5.0-8.0) 05/25/17 08:17 Ur Specific Manvel 1.013 (1.003-1.030) 05/25/17 08:17 Urine Protein Negative mg/dL (NEGATIVE) 05/25/17 08:17 Urine Glucose (UA) Normal mg/dL (Normal) 05/25/17 08:17 Urine Ketones Negative mg/dL (NEGATIVE) 05/25/17 08:17 Urine Blood Negative (NEGATIVE) 05/25/17 08:17 Urine Nitrate Negative (NEGATIVE) 05/25/17 08:17 Urine Bilirubin Negative (NEGATIVE) 05/25/17 08:17 Urine Urobilinogen Normal mg/dL (0.2-1.0) 05/25/17 08:17 Ur Leukocyte Esterase Neg Sandee/uL (Negative) 05/25/17 08:17 Urine RBC (Auto) 1 /hpf (0-3) 05/25/17 08:17 Amorphous Sediment Moderate /ul (<OCC) H 05/25/17 08:17 Urine Opiates Screen Negative (NEGATIVE) 05/25/17 08:17 Urine Methadone Screen Negative (NEGATIVE) 05/25/17 08:17 Ur Barbiturates Screen Negative (NEGATIVE) 05/25/17 08:17 Ur Phencyclidine Scrn Negative (NEGATIVE) 05/25/17 08:17 Ur Amphetamines Screen Negative (NEGATIVE) 05/25/17 08:17 U Benzodiazepines Scrn Negative (NEGATIVE) 05/25/17 08:17 U Oth Cocaine Metabols Negative (NEGATIVE) 05/25/17 08:17 U Cannabinoids Screen Positive (NEGATIVE) H 05/25/17 08:17 Alcohol, Quantitative < 10 mg/dl (0-10) 05/25/17 08:03 Hepatitis A IgM Ab Negative (NEGATIVE) 05/25/17 16:41 Hep Bs Antigen Negative (NEGATIVE) 05/25/17 16:41 Hep B Core IgM Ab Negative (NEGATIVE) 05/25/17 16:41 Hepatitis C Antibody Negative (NEGATIVE) 05/25/17 16:41 HIV 1&2 Antibody Screen Negative (NEGATIVE) 05/25/17 16:41 Attending/Attestation - Attestation I have personally seen and examined this patient.: Yes I have fully participated in the care of the patient.: Yes I have reviewed all pertinent clinical information, including history, physical exam and plan: Yes Notes (Text): Patient seen, examined, and case discussed with certified medical asst. Patient seen during morning rounds. Patient denies nausea, denies vomitting, and reports he had bowel movement today. Patient started on new regimen by his gym bilingual trainer, first session last , he reports prior to his gym session he was feeling unwell. Patient reports he drinks a gallon of water a day, mixes his whey protein with water. Patient admits he is a heavy cannabis user, reports he has done research on it. He reports with the whey protein he doesn't feel satieated. I advised him his cannabis use encourages appetite. Patient denies psychosis/hallucinations. Patient reports he has had a recent break up with his girlfriend which has been prompting his cannabis use. Patient reports he has his last meal around 7pm, and goes to bed 11pm but reports heavy gerd. He has been recommended for PPi/H2 in the past but was afraid of side effects. I advised to him to do short frequent meals as well as increase fiber in his diet. I advised the patient to cut his cannabis use, he reports to me he is aware of the association in regards to mental illness and low grades in school. Patient given 1 week antibiotic to cover for colitis including ciprofloxacin 500mg PO BID and Flagyl 500mg PO TID. Advised to refrain from alcohol use given unfavorable adverse reaction with medications. He is recommended to follow-up in the [facility], to follow-up symptoms resolved, if patient has persistent gerd inspite of dietary modifications, may require further workup. He is advised to avoid spicy, caffeine, chocolate, fried foods to avoid irritating the stomach. Work excuse provided upon discharge. This is a summary of patient's hospitalization. Please see EMR for further details. Assessment/Plan 1) Gastroenteritis (stable) Constipation (improved) Intractable Nausea / Vomiting (resolved) * Diet advanced; tolerated no adverse side effect * CT scan report available in the EMR from day prior to admission * UDS: +marijuana * Discharged on: * 1 week antibiotic to cover for colitis including ciprofloxacin 500mg PO BID and Flagyl 500mg PO TID. Advised to refrain from alcohol use given unfavorable adverse reaction with medications. * Hepatitis negative * HIV negative * Had bowel movement-->loose 2) Marijuana Use * advised to abstain from marijuana use 3) Transaminitis * AST 83H / ALT 117H on admission * improved * Hepatitis panel: negative HIV negative 4) Prophylaxis * Protonix 40mg IVP qD * SCDs * DVT risk score = 0; no anticoagulation needed.
--- NOTE | 2017-05-26 21:08 | CARD ---
APPROVED REPORT EXAM: Two-dimensional and M-mode echocardiogram with Doppler and color Doppler. Other Information Quality : [employer] : INDICATION HOLOSYSTOLIC MURMUR AT APEX, INTRACTABLE VOMITING, COLITIS 2D DIMENSIONS IVSd1.0 (0.7-1.1cm)LVDd4.5 (3.9-5.9cm) PWd0.7 (0.7-1.1cm)LVDs3.4 (2.5-4.0cm) FS (%) 25.0 %LVEF (%)49.5 (>50%) M-Mode DIMENSIONS RVDd3.19 (2.1-3.2cm)Left Atrium (MM)3.28 (2.5-4.0cm) IVSd0.76 (0.7-1.1cm)Aortic Root2.40 (2.2-3.7cm) LVDd5.10 (4.0-5.6cm)Aortic Cusp Exc.1.78 (1.5-2.0cm) PWd0.82 (0.7-1.1cm)FS (%) 35 % LVDs3.34 (2.0-3.8cm)LVEF (%)63 (>50%) Mitral Valve MV E Ybsokblo476.4cm/sMV A Ytrlafdv86.9cm/sE/A ratio2.8 TDI E/Lateral E'0.0E/Medial E'0.0 Tricuspid Valve TR Peak Jzutafpr197nw/sTR Peak Gr.[id number] LEFT VENTRICLE The left ventricle is normal size. There is normal left ventricular wall thickness. Left ventricle systolic function is normal. The Ejection Fraction is 65-70%. There is normal LV segmental wall motion. The left ventricular diastolic function is normal. There is no ventricular septal defect visualized. RIGHT VENTRICLE The right ventricle is normal size. The right ventricular systolic function is normal. ATRIA The left atrium size is normal. The right atrium size is normal. AORTIC VALVE The aortic valve is tri-cuspid. The aortic valve is normal in structure. No aortic regurgitation is present. There is no aortic valvular stenosis. MITRAL VALVE The mitral valve is normal in structure. There is no evidence of mitral valve prolapse. Mitral regurgitation is trace to mild. ERO 0.1 cm TRICUSPID VALVE The tricuspid valve is normal in structure. There is moderate tricuspid regurgitation. There is no pulmonary hypertension. PULMONIC VALVE The pulmonary valve is normal in structure. There is trace pulmonic valvular regurgitation. GREAT VESSELS The aortic root is normal in size. The ascending aorta is normal in size. The IVC is normal in size and collapses >50% with inspiration. PERICARDIAL EFFUSION There is no pericardial effusion. <Conclusion> Left ventricle systolic function is normal. The Ejection Fraction is 65-70%. The left ventricular diastolic function is normal. Mitral regurgitation is trace to mild. ERO 0.1 cm
[2017-05-27] MEDS ORDERED: Pneumococcal 23-Valent Vaccine IM ONE (10:00)
[2017-05-28] MEDS ORDERED: Influenza Vaccine 60 mcg/0.5 mL SYR (4YR UP) IM ONE (10:00)
== END 2017-05-26 14:22 | disposition home or self-care (01) ==
LOC: C.ER 07:25 → C.9E 10:49 → C.6T 11:10
PROVIDERS: ADMIT Hospitalist; ATTEND Hospitalist
DX: K52.9 Noninfective gastroenteritis and colitis, unspecified (principal); F12.90 Cannabis use, unspecified, uncomplicated; I12.9 Hypertensive chronic kidney disease with stage 1 through stage 4 chronic kidney disease, or unspecified chronic kidney disease; E11.22 Type 2 diabetes mellitus with diabetic chronic kidney disease; K59.00 Constipation, unspecified; N18.9 Chronic kidney disease, unspecified; Z87.891 Personal history of nicotine dependence
CPT/HCPCS: 36415; 80053; 80074; 81001; 83690; 83735; 84100; 85025; 86703; 86768; 87045; 87177; 87209; 93005; 93306; 96360; 96374; 99285; C9113; G0378; G0480; J0744; J1885; J2270; J2405; J2765; J7040

== ENCOUNTER 2017-05-27 10:37 | Observation (INO) | payer OTHER, MEDICAID ==
[2017-05-27 10:38] VITALS: BMI 19.7
--- NOTE | 2017-05-27 11:33 | C.PDOC ---
History Of Present Illness This 21 year old Male with PMHx of +kidney stone in 2017 s/p lithotripsy + L ureter stent (removed 2 wks later), who presents to the ED with complaints of abdominal pain that started this morning with associated symptoms of nausea and vomiting. Patient reports that [facility] and abdominal pain; he was given thorazine, however, patient signed off AMA because he was not given pain medications. In addition, patient was just recently discharged on 05/26/17 with diagnosis of colitis and intractable vomiting. During today's encounter, patient admits to diffuse abdominal cramps> epigastric region, vomiting, nauseas, diarrhea. Chief Complaint (Nursing): Abdominal Pain History Per: Patient History/Exam Limitations: no limitations Onset/Duration Of Symptoms: Days Current Symptoms Are (Timing): Still Present Severity: Severe Pain Scale Rating Of: 9 Location: Diffuse but more localized to the epigastric region Quality: 9/10 cramping pain Reports Recently: Seen In ED, Hospitalized Recent travel outside of the [place]: No Additional History Per: Patient Past Medical History Vital Signs: Last Vital Signs Temp 98.5 F 05/27/17 13:55 Pulse 53 L 05/27/17 13:55 Resp 16 05/27/17 13:55 BP 119/72 05/27/17 13:55 Pulse Ox 100 05/27/17 13:55 - Medical History PMH: Kidney Stones, Chronic Kidney Disease Other Surgeries: 2017 s/p lithotripsy + L ureter stent (removed 2 wks later) Family History: States: Unknown Family Hx, Diabetes, Hypertension - Social History Hx Alcohol Use: Yes Hx Substance Use: Yes (linda) - Immunization History Hx Tetanus Toxoid Vaccination: No Hx Influenza Vaccination: No Hx Pneumococcal Vaccination: No Review Of Systems Constitutional: Negative for: Fever, Chills Cardiovascular: Negative for: Chest Pain, Palpitations, Orthopnea, Light Headedness Respiratory: Negative for: Shortness of Breath Gastrointestinal: Positive for: Nausea, Vomiting, Abdominal Pain, Diarrhea Neurological: Positive for: Weakness Physical Exam - Physical Exam Appears: No Acute Distress Skin: Normal Color, No Diaphoretic Head: Atraumatic, Normacephalic Eye(s): bilateral: Normal Inspection, EOMI Oral Mucosa: Moist Lips: Normal Appearing Teeth: Normal Dentition Cardiovascular: Rhythm Regular, No Murmur Respiratory: Normal Breath Sounds, No Decreased Breath Sounds, No Accessory Muscle Use, No Rhonchi, No Stridor Gastrointestinal/Abdominal: Bowel Sounds, Soft, Tenderness Extremity: No Tenderness, No Pedal Edema, No Calf Tenderness Neurological/Psych: Oriented x3, Normal Speech ED Course And Treatment - Laboratory Results Result Diagrams: 05/27/17 11:31 05/27/17 11:31 O2 Sat by Pulse Oximetry: 97 Medical Decision Making Medical Decision Making: CT abdomen/Pelvis: small free fluid in the pelvic region, moderate constipation Disposition Discussed With : Iesha Chow Doctor Will See Patient In The: ED - Disposition Disposition: HOSPITALIZED Disposition Time: 03:10 Condition: FAIR Additional Instructions: Inpatient observation Forms: [facility] (Irish) - Clinical Impression Clinical Impression: Abdominal discomfort, Vomiting
[2017-05-27 11:36] LABS: BASO % 0.3 % (0.0-2.0); EOS % 0.5 % (0.0-4.0); LYMPH # 0.8 K/uL (1.0-4.3); LYMPH % 9.7 % (20.0-40.0); MEAN CORPUSCULAR HEMOGLOBIN 30.7 pg (27.0-31.0); MEAN CORPUSCULAR HGB CONC 34.2 g/dL (33.0-37.0); MONO # 0.4 K/uL (0.0-0.8); NEUT # 6.9 K/uL (1.8-7.0); NEUT % 84.5 % (50.0-75.0); PLATELET COUNT 253 K/uL (130-400); RBC 4.56 Mil/uL (4.40-5.90); WHITE BLOOD COUNT 8.2 K/uL (4.8-10.8)
[2017-05-27 11:51] LABS: ALB/GLOB RATIO 1.3 (1.0-2.1); ALBUMIN 4.4 g/dL (3.5-5.0); ALT/SGPT 83 U/L (21-72); AST/SGOT 39 U/L (17-59); BLOOD UREA NITROGEN 8 mg/dL (9-20); CALCIUM 8.6 mg/dl (8.6-10.4); GFR AFRICAN-AMERICAN > 60; GFR NON-AFRICAN AMERICAN > 60
[2017-05-27 12:14] LABS: EOSINOPHIL 1 % (0-4); LYMPHOCYTE 7 % (20-40); MONOCYTE 6 % (0-10); NEUTROPHIL 86 % (50-75); PLATELET ESTIMATE NORMAL (NORMAL); TOTAL CELLS COUNTED 100
[2017-05-27 12:22] LABS: LIPASE 70 U/L (23-300)
[2017-05-27] MEDS ORDERED: Iohexol 350mg/ml 100 ML ONE (12:24)
[2017-05-27] MEDS ORDERED: Sodium Chloride 0.9% 500 ML IV ONE ×2 (12:30→12:47)
[2017-05-27 14:35] LABS: BARBITURATES, UR NEGATIVE (NEGATIVE); BENZODIAZEPINES, UR NEGATIVE (NEGATIVE); PHENCYCLIDINE, UR NEGATIVE (NEGATIVE)
--- NOTE | 2017-05-27 14:49 | CT ---
PROCEDURE: CT Abdomen and Pelvis with contrast HISTORY: Abdominal pain and Intractable vomiting COMPARISON: CT abdomen and pelvis with IV contrast performed 05/24/17 TECHNIQUE: Contrast dose: 100 mL Omnipaque 350 Radiation dose: Total exam DLP = 218.35 mGy-cm. This CT exam was performed using one or more of the following dose reduction techniques: Automated exposure control, adjustment of the mA and/or kV according to patient size, and/or use of iterative reconstruction technique. FINDINGS: LOWER THORAX: No visible consolidation, pleural effusion, or pneumothorax. Small hiatal hernia/distal esophageal wall thickening. LIVER: Unremarkable. GALLBLADDER AND BILE DUCTS: Unremarkable. PANCREAS: Unremarkable. SPLEEN: Unremarkable. ADRENALS: Unremarkable. KIDNEYS AND URETERS: The kidneys enhance symmetrically. No hydronephrosis or obstructing calculus identified. VASCULATURE: No aortic aneurysm. BOWEL: Stomach is nondistended. Lack of oral contrast limits evaluation for bowel pathology. Nonspecific prominent fluid filled small bowel loop in the right lower quadrant does not appear dilated. Bowel loops appear otherwise unremarkable without evidence of obstruction. Moderate constipation. APPENDIX: The appendix appears within normal limits of caliber. No secondary signs of acute appendicitis. PERITONEUM: Small pelvic free fluid. No definite free air. LYMPH NODES: No bulky adenopathy identified. BLADDER: Unremarkable. REPRODUCTIVE: Unremarkable. BONES: No acute osseous abnormality is detected. OTHER FINDINGS: None. IMPRESSION: Small pelvic free fluid, unusual in a young male patient. Nonspecific prominent fluid filled small bowel loop in the right lower quadrant. Bowel loops appear otherwise unremarkable. Moderate constipation.
[2017-05-27 14:56] LABS: OPIATES, UR POSITIVE (NEGATIVE)
[2017-05-27 15:16] LABS: URINE BILIRUBIN NEGATIVE (NEGATIVE); URINE BLOOD NEGATIVE (NEGATIVE); URINE CLARITY Clear (Clear); URINE COLOR Colorless (YELLOW); URINE GLUCOSE (UA) NORMAL (Normal); URINE LEUKOCYTE ESTERASE NEG Leu/uL (Negative); URINE PROTEIN NEGATIVE (NEGATIVE); URINE UROBILINOGEN NORMAL mg/dL (0.2-1.0)
[2017-05-27] MEDS ORDERED: Potassium Chloride 20 mEq ER Tab PO ONE ×2 (15:54→16:04)
[2017-05-27 16:05] LABS: AMYLASE 86 U/L (30-110)
--- NOTE | 2017-05-27 17:11 | CP.PCM.HP ---
<Candido Velasco - Last Filed: 05/27/17 17:08> History of Present Illness - History of Present Illness History of Present Illness: PGY1 resident - medicine H&P CC: N/V and abdominal discomfort HPI: Patient is a 21 year old male who presents for abdominal pain and vomiting. Patient was recently discharged from this hospital yesterday, after being admitted for similar complaints; while infectious process was not suspected, patient was discharged with Rx for Cipro and Flagyl. Patient was instructed to reduce cannabis use, as it could have contributed to his symptoms. Patient states that he arrived home yesterday after discharge at 3pm, smoked 1 blunt (states it was his last one), took a shower, and felt well; he ate grapes, strawberries and rice with no nausea/vomiting, took his dog out for a walk and played video games. He did not get the Rx filled for Cipro and Flagyl and thus didn't take either. He went to sleep feeling well without any complaints. Today patient woke up at 6:30am with abdominal pain, described as diffuse but worse in the lower abdomen, constant but waxing/waning, cramping, worse with breathing. He tried drinking water and Pepto-Bismol with no improvement, and subsequently vomited 6x (green/yellow/brown vomitous, non- bloody). Pain was improved for a few seconds with vomiting, but then returned. He notes feeling hot/cold, diaphoretic, and dizzy for a few seconds with the vomiting. He did not eat or drink anything else. He called the ambulance at 7: 30am, which took him to [facility]. He felt that he was was not being treated well, so he signed out AMA and took an Uber to this hospital (vomited x 4 in the Uber car). He states that he vomited multiple times here in the ED. At present, patient report nausea and abdominal discomfort. He states he just feels "desperate" to feel better. Last bowel movement was just prior to CT scan in the ED--it was a small amount of brown solid/liquid. Otherwise he denies chest pain, SOB, cough, hematochezia, melena, dysuria, leg pain/swelling, testicular pain/swelling, back pain, recent travel, sick contacts, recent illness other than this recent episode. He denies a known family history of colon CA, IBD, Celiac's disease. Denies using any other substances besides marijuana. Denies use of steroids/ testosterone/any other injections. PMHx: kidney stones 2017 s/p lithotripsy + L ureter stent PSHx: lithotripsy + L ureter stent in 2017 (removed after 2 wks) Meds: none Allergies: NKDA FamHx: Dad w/ DM, HTN; Mom healthy SocHx: Social ETOH (1 beer/mo); Quit tobacco 2yrs ago (formerly 1ppd x5yrs); + Marijuana (1 blunt per day) PMD: none Code status: Full Code No advance directive In the event that patient cannot make healthcare decisions for himself, he wants his cousin Mae Velazquez ([phone]) to make decisions for him. Present on Admission - Present on Admission Any Indicators Present on Admission: No Review of Systems - Review of Systems All systems: reviewed and no additional remarkable complaints except (as stated in HPI) Past Patient History - Infectious Disease Hx of Infectious Diseases: None - Past Social History Smoking Status: Never Smoked - RENAL Hx Chronic Kidney Disease: Yes Hx Kidney Stones: Yes - MUSCULOSKELETAL/RHEUMATOLOGICAL Hx Falls: No - PSYCHIATRIC Hx Substance Use: Yes (linda) - SURGICAL HISTORY Hx Surgeries: No - ANESTHESIA Hx Anesthesia: No Hx Anesthesia Reactions: No Meds Allergies/Adverse Reactions: Allergies Allergy/AdvReac Type Severity Reaction Status Date / Time No Known Allergies Allergy Verified 05/25/17 07:32 Physical Exam - Constitutional Appears: Well, Non-toxic, No Acute Distress - Head Exam Head Exam: ATRAUMATIC, NORMAL INSPECTION - Eye Exam Eye Exam: EOMI Pupil Exam: PERRL - ENT Exam ENT Exam: Mucous Membranes Moist - Neck Exam Neck exam: Positive for: Full Rom, Normal Inspection. Negative for: Lymphadenopathy, Tenderness - Respiratory Exam Respiratory Exam: Clear to Auscultation Bilateral, NORMAL BREATHING PATTERN. absent: Rales, Rhonchi, Wheezes - Cardiovascular Exam Cardiovascular Exam: REGULAR RHYTHM, +S1, +S2. absent: Bradycardia, Tachycardia , JVD, Systolic Murmur - GI/Abdominal Exam GI & Abdominal Exam: Normal Bowel Sounds, Soft, Tenderness. absent: Distended, Firm, Guarding, Hernia, Mass, Organomegaly, Pulsatile Mass, Rebound, Rigid Additional comments: mild tenderness to deep palpation in periumbilical region - Rectal Exam Rectal Exam: Deferred - Extremities Exam Extremities exam: Positive for: normal capillary refill, normal inspection, pedal pulses present. Negative for: calf tenderness, pedal edema, tenderness - Back Exam Back exam: NORMAL INSPECTION. absent: CVA tenderness (L), CVA tenderness (R), rash noted - Neurological Exam Neurological exam: Alert, CN II-XII Intact, Oriented x3, Reflexes Normal - Psychiatric Exam Psychiatric exam: Normal Affect, Normal Mood Additional comments: Denies suicidal ideation - Skin Skin Exam: Intact, Normal Color, Warm Results - Vital Signs Recent Vital Signs: Last Vital Signs Temp 98.5 F 05/27/17 13:55 Pulse 53 L 05/27/17 13:55 Resp 16 05/27/17 13:55 BP 119/72 05/27/17 13:55 Pulse Ox 97 05/27/17 15:11 - Labs Result Diagrams: 05/27/17 11:31 05/27/17 11:31 Labs: Laboratory Results - last 24 hr 05/27/17 05/27/17 05/27/17 11:31 11:31 12:24 WBC 8.2 RBC 4.56 Hgb 14.0 Hct 41.0 MCV 90.0 MCH 30.7 MCHC 34.2 RDW 13.0 Plt Count 253 MPV 9.0 Neut % (Auto) 84.5 H Lymph % (Auto) 9.7 L [place] % (Auto) 5.0 Eos % (Auto) 0.5 Baso % (Auto) 0.3 Neut # (Auto) 6.9 Lymph # (Auto) 0.8 L [place] # (Auto) 0.4 Eos # (Auto) 0.0 Baso # (Auto) 0.0 Neutrophils % (Manual) 86 H Lymphocytes % (Manual) 7 L Monocytes % (Manual) 6 Eosinophils % (Manual) 1 Platelet Estimate Normal Sodium 141 Potassium 3.4 L Chloride 103 Carbon Dioxide 22 Anion Gap 19 BUN 8 L Creatinine 0.8 Est GFR ( Amer) > 60 Est GFR (Non-Af Amer) > 60 Random Glucose 114 H Calcium 8.6 Magnesium 1.4 L Total Bilirubin 0.6 AST 39 ALT 83 H Alkaline Phosphatase 56 Total Protein 7.7 Albumin 4.4 Globulin 3.3 Albumin/Globulin Ratio 1.3 Amylase 86 Lipase 70 Urine Color Urine Clarity Urine pH Ur Specific [place] Urine Protein Urine Glucose (UA) Urine Ketones Urine Blood Urine Nitrate Urine Bilirubin Urine Urobilinogen Ur Leukocyte Esterase Urine WBC (Auto) Urine RBC (Auto) Urine Opiates Screen Urine Methadone Screen Ur Barbiturates Screen Ur Phencyclidine Scrn Ur Amphetamines Screen U Benzodiazepines Scrn U Oth Cocaine Metabols U Cannabinoids Screen Alcohol, Quantitative < 10 05/27/17 05/27/17 14:00 15:09 WBC RBC Hgb Hct MCV MCH MCHC RDW Plt Count MPV Neut % (Auto) Lymph % (Auto) [place] % (Auto) Eos % (Auto) Baso % (Auto) Neut # (Auto) Lymph # (Auto) [place] # (Auto) Eos # (Auto) Baso # (Auto) Neutrophils % (Manual) Lymphocytes % (Manual) Monocytes % (Manual) Eosinophils % (Manual) Platelet Estimate Sodium Potassium Chloride Carbon Dioxide Anion Gap BUN Creatinine Est GFR ( Amer) Est GFR (Non-Af Amer) Random Glucose Calcium Magnesium Total Bilirubin AST ALT Alkaline Phosphatase Total Protein Albumin Globulin Albumin/Globulin Ratio Amylase Lipase Urine Color Colorless Urine Clarity Clear Urine pH 8.0 Ur Specific [place] 1.048 H Urine Protein Negative Urine Glucose (UA) Normal Urine Ketones 1+ H Urine Blood Negative Urine Nitrate Negative Urine Bilirubin Negative Urine Urobilinogen Normal Ur Leukocyte Esterase Neg Urine WBC (Auto) < 1 Urine RBC (Auto) 1 Urine Opiates Screen Positive H Urine Methadone Screen Negative Ur Barbiturates Screen Negative Ur Phencyclidine Scrn Negative Ur Amphetamines Screen Negative U Benzodiazepines Scrn Negative U Oth Cocaine Metabols Negative U Cannabinoids Screen Positive H Alcohol, Quantitative Assessment & Plan (1) Abdominal discomfort Assessment and Plan: Patient discharged yesterday - felt well - then smoked marijuana and symptoms (N /V, abd discomfort) returned few hours later. Cyclic vomiting syndrome 2/2 to daily chronic marijuana use? Will investigate other infectious/pathological etiologies of symptoms. Left shift, no bands. Afebrile. No leukocytosis. F/U C.Diff, Stool Cx, H.Pylori NPO for now GI consult, Dr Nanette Ceron - Help appreciated * Will defer to GI regarding further imaging Meds: Cipro 400mg IV Q12H Flagyl 500mg IV Q8H NS @ 100cc/hr Zofran 4mg IVP Q12H PRN Protonix 40mg IVP QD Imaging: CT abd/pelvis w/ IV contrast 05/24/17: Large amount of stool in the colon and nonspecific right colonic thickening. Correlation with patient's clinical history of constipation versus stool related colitis versus nonspecific colitis is recommended. CT abd/pelvis w/ IV contrast 05/27/17: Small pelvic free fluid, unusual in a young male patient. Nonspecific prominent fluid filled small bowel loop in the right lower quadrant. Bowel loops appear otherwise unremarkable. Moderate constipation. F/U Abdominal Ultrasound Status: Acute Priority: High (2) Free fluid in pelvis Assessment and Plan: Denies scrotal swelling, dysuria, inguinal pain, CVA tenderness Urinalysis showed specfic gravity 1.048 and 1+ ketones F/U Urine Cx Imaging: CT abd/pelvis w/ IV contrast 05/24/17: Large amount of stool in the colon and nonspecific right colonic thickening. Correlation with patient's clinical history of constipation versus stool related colitis versus nonspecific colitis is recommended. CT abd/pelvis w/ IV contrast 05/27/17: Small pelvic free fluid, unusual in a young male patient. Nonspecific prominent fluid filled small bowel loop in the right lower quadrant. Bowel loops appear otherwise unremarkable. Moderate constipation. Status: Acute Priority: High (3) Suicidal ideation Assessment and Plan: Patient threatened to jump off aly to ER resident if not properly treated. To senior grant writer patient denied suicidal ideation. He stated he just wants relief of his symptoms. No hx of suicide attempts. Psych consult, Dr Patel Status: Acute Priority: High (4) Prophylactic measure Assessment and Plan: Protonix 40mg IVP QD Lovenox 40mg SC QD, SCDs not indicated NPO for now Status: Acute Priority: Low <Dolores Simpson V - Last Filed: 05/27/17 18:30> Results - Vital Signs Recent Vital Signs: Last Vital Signs Temp 98.4 F 05/27/17 18:15 Pulse 72 05/27/17 18:15 Resp 16 05/27/17 18:15 BP 118/64 05/27/17 18:15 Pulse Ox 100 05/27/17 18:15 - Labs Result Diagrams: 05/27/17 11:31 05/27/17 11:31 Labs: Laboratory Results - last 24 hr 05/27/17 05/27/17 05/27/17 11:31 11:31 12:24 WBC 8.2 RBC 4.56 Hgb 14.0 Hct 41.0 MCV 90.0 MCH 30.7 MCHC 34.2 RDW 13.0 Plt Count 253 MPV 9.0 Neut % (Auto) 84.5 H Lymph % (Auto) 9.7 L [place] % (Auto) 5.0 Eos % (Auto) 0.5 Baso % (Auto) 0.3 Neut # (Auto) 6.9 Lymph # (Auto) 0.8 L [place] # (Auto) 0.4 Eos # (Auto) 0.0 Baso # (Auto) 0.0 Neutrophils % (Manual) 86 H Lymphocytes % (Manual) 7 L Monocytes % (Manual) 6 Eosinophils % (Manual) 1 Platelet Estimate Normal Sodium 141 Potassium 3.4 L Chloride 103 Carbon Dioxide 22 Anion Gap 19 BUN 8 L Creatinine 0.8 Est GFR ( Amer) > 60 Est GFR (Non-Af Amer) > 60 Random Glucose 114 H Calcium 8.6 Magnesium 1.4 L Total Bilirubin 0.6 AST 39 ALT 83 H Alkaline Phosphatase 56 Total Protein 7.7 Albumin 4.4 Globulin 3.3 Albumin/Globulin Ratio 1.3 Amylase 86 Lipase 70 Urine Color Urine Clarity Urine pH Ur Specific [place] Urine Protein Urine Glucose (UA) Urine Ketones Urine Blood Urine Nitrate Urine Bilirubin Urine Urobilinogen Ur Leukocyte Esterase Urine WBC (Auto) Urine RBC (Auto) Urine Opiates Screen Urine Methadone Screen Ur Barbiturates Screen Ur Phencyclidine Scrn Ur Amphetamines Screen U Benzodiazepines Scrn U Oth Cocaine Metabols U Cannabinoids Screen Alcohol, Quantitative < 10 05/27/17 05/27/17 14:00 15:09 WBC RBC Hgb Hct MCV MCH MCHC RDW Plt Count MPV Neut % (Auto) Lymph % (Auto) [place] % (Auto) Eos % (Auto) Baso % (Auto) Neut # (Auto) Lymph # (Auto) [place] # (Auto) Eos # (Auto) Baso # (Auto) Neutrophils % (Manual) Lymphocytes % (Manual) Monocytes % (Manual) Eosinophils % (Manual) Platelet Estimate Sodium Potassium Chloride Carbon Dioxide Anion Gap BUN Creatinine Est GFR ( Amer) Est GFR (Non-Af Amer) Random Glucose Calcium Magnesium Total Bilirubin AST ALT Alkaline Phosphatase Total Protein Albumin Globulin Albumin/Globulin Ratio Amylase Lipase Urine Color Colorless Urine Clarity Clear Urine pH 8.0 Ur Specific [place] 1.048 H Urine Protein Negative Urine Glucose (UA) Normal Urine Ketones 1+ H Urine Blood Negative Urine Nitrate Negative Urine Bilirubin Negative Urine Urobilinogen Normal Ur Leukocyte Esterase Neg Urine WBC (Auto) < 1 Urine RBC (Auto) 1 Urine Opiates Screen Positive H Urine Methadone Screen Negative Ur Barbiturates Screen Negative Ur Phencyclidine Scrn Negative Ur Amphetamines Screen Negative U Benzodiazepines Scrn Negative U Oth Cocaine Metabols Negative U Cannabinoids Screen Positive H Alcohol, Quantitative Attending/Attestation - Attestation I have personally seen and examined this patient.: Yes I have fully participated in the care of the patient.: Yes I have reviewed all pertinent clinical information: Yes Notes (Text): Patient seen, examined, case discussed with medical receptionist biller. Patient seen and evaluated [place] [id number] emergency room approximately 5:40 PM. I'm familiar with the patient as a night discharged him yesterday all falling once appear to resolution of gastroenteritis. Patient was tolerating of diet and stool will starting form. Patient was discharged on by mouth antibiotics but has not filled them because he was awaiting to receive his speech check from work today. Patient reports he was doing well at home he was able to tolerate diet at home he reports he cooked, [place] rice did not use any pre- max as well as bought some strawberries grapes at his local grocery store. He was able to walk his dog no no issues. He reports he had one last blunt left and decided that he wanted to use it. He reports next morning i.e. today he had abdominal cramping discomfort which prompted him to go called the ambulance which he was taken to [facility] but left AMA because he thought the medication that they gave him worsened his nausea and vomiting. Patient reports he throughout multiple times today as well as in the Uber he took from the hospital to come here. Per discussion with the resident rotating in the emergency room as well as with nursing staff patient was very belligerent, was cursing at and at staff, and at one point threatened to walk outside into the street into traffic because he was not getting pain medication. Patient with me is quite comfortable he is already completed his abdominal ultrasound. Patient reports mild abdominal discomfort, denies nausea or vomiting vomiting at present, and reports that the stool appears to be forming. I'll given prior prior to CAT scans one from May 25 and the other from today May 27, patient did not have any by mouth contrast given his intractable nausea vomiting. Patient does show some mildly dilated small bowel loops of bowel. No in today's CAT scan did show some small free fluid in the pelvis, did order for abdominal ultrasound just to clarify which appears to minimal per their report. On my Perez exam patient has a soft belly nondistended nontender no guarding no rigidity no peritoneal signs and he is able to speak fluently and fluidly without no hesitation. Patient is mildly dehydrated compared to yesterday We will continue IV antibiotics for Cipro and Flagyl to cover for infectious causes of colitis. We will collect stool samples including leukocyte ova culture as well as C. difficile. Giving the patient has colitis and has been exposed to IV antibiotics will like to rule out C. difficile. We'll consult GI since patient has been in our hospital now for the past 3 days to see if patient warrants further workup. Patient does not have family history of inflammatory bowel disease nor history of colon cancer, but he is quite young. Also have strong suspicion that this is related to his cannabis use and possibly cannabis hyperemesis. Patient is able to vocalize that he should stop taking his cannabis though he was advised multiple times yesterday to stop his cannabis. We'll order for one-to-one and given the patient had quite an outburst earlier today as well as psychiatry consult in light of cannabis abuse dependence and associated anxiety relieving manner in which he uses his cannabis.
[2017-05-27] MEDS: Sodium Chloride 0.9% 1,000 ML IV SCH (17:50)
--- NOTE | 2017-05-27 18:00 | US ---
HISTORY: abdominal pain, fluid noted on CT scan COMPARISON: CT abdomen pelvis with IV contrast performed 05/27/17 TECHNIQUE: Sonographic evaluation of the abdomen. FINDINGS: LIVER: Measures 12.4 cm cm in sagittal dimension and appears within normal limits of size, shape, and echotexture. No focal hepatic mass identified. The main portal vein appears patent with normal directional flow. No intrahepatic bile duct dilatation. GALLBLADDER: No gallstones. No gallbladder wall thickening. Negative sonographic Mckenzie's sign as assessed by the technical instructor course developer. COMMON BILE DUCT: Measures 2 mm. PANCREAS: Not well visualized. RIGHT KIDNEY: Measures 9.2 x 6.0 x 4.9cm. No obstructing calculus or hydronephrosis identified. LEFT KIDNEY: Measures 10.5 x 6.1 x 4.1cm. No obstructing calculus or hydronephrosis identified. SPLEEN: Measures approximately 8.0 cm. AORTA: Limited views appear unremarkable. IVC: Limited views appear unremarkable. OTHER FINDINGS: None. IMPRESSION: Unremarkable abdominal sonogram with findings as above.
[2017-05-27] MEDS ORDERED: Ciprofloxacin 400mg/200ml D5W 400 MG/200 ML BAG IVPB ONE (18:40)
[2017-05-27] MEDS: Ciprofloxacin 400mg/200ml D5W 400 MG/200 ML BAG IVPB SCH (18:41)
[2017-05-27] MEDS ORDERED: Magnesium Sulfate 1 gm in D5W 0 GM/0 ML BAG IVPB ONE (19:03)
[2017-05-27] MEDS: Magnesium Sulfate 1 gm in D5W 1 GM/100 ML BAG IVPB SCH ×2 (19:09→20:50)
[2017-05-27] MEDS: metroNIDAZOLE IV 500 mg/100 ml 500 MG/100 ML BAG IVPB SCH (22:01)
[2017-05-28] MEDS: Sodium Chloride 0.9% 1,000 ML IV SCH ×3 (04:17→16:00)
[2017-05-28] MEDS: Ciprofloxacin 400mg/200ml D5W 400 MG/200 ML BAG IVPB SCH ×2 (04:17→17:13)
[2017-05-28] MEDS: metroNIDAZOLE IV 500 mg/100 ml 500 MG/100 ML BAG IVPB SCH ×3 (05:08→21:49)
[2017-05-28 06:05] LABS: BASO % 0.7 % (0.0-2.0); EOS # 0.1 K/uL (0.0-0.7); EOS % 1.7 % (0.0-4.0); HEMOGLOBIN 13.9 g/dL (12.0-18.0); LYMPH # 2.1 K/uL (1.0-4.3); LYMPH % 30.4 % (20.0-40.0); MEAN CELL VOLUME 89.5 fL (80.0-94.0); MEAN CORPUSCULAR HGB CONC 34.6 g/dL (33.0-37.0); MEAN PLATELET VOLUME 8.5 fL (7.2-11.7); MONO # 0.8 K/uL (0.0-0.8); MONO % 11.2 % (0.0-10.0); NEUT # 3.8 K/uL (1.8-7.0); RBC 4.49 Mil/uL (4.40-5.90); RED CELL DISTRIBUTION WIDTH 13.2 % (11.5-14.5); WHITE BLOOD COUNT 6.8 K/uL (4.8-10.8)
[2017-05-28 06:41] LABS: ALB/GLOB RATIO 1.2 (1.0-2.1); ALBUMIN 3.7 g/dL (3.5-5.0); ALT/SGPT 63 U/L (21-72); AST/SGOT 28 U/L (17-59); BLOOD UREA NITROGEN 9 mg/dL (9-20); CALCIUM 8.6 mg/dl (8.6-10.4); GFR AFRICAN-AMERICAN > 60; GFR NON-AFRICAN AMERICAN > 60
[2017-05-28 07:09] LABS: TESTOSTERONE 484 ng/mL
--- NOTE | 2017-05-28 09:31 | CP.PCM.CON ---
History of Present Illness - History of Present Illness History of Present Illness: 21 yo male with h/o marijuana use admitted and discharged the day prior to readmission with diffuse abdominal pain, diarrhea and bililous vomiting. Work up in hosptial was negative and he was discharged on Cipro and Flagyl for infectious etiology but did not fill Rx. Awoke morning after discharge with recurrence of pain and vomiting. Admits to smoking maijuana the day of discharge as well. No fever, chills, bleeding or melena. No recent travel. Stools submitted from ER. Repeat CT showed some pelvic free fluid but no obstruction or colitis. Reports symptoms began soon after eating a chicken sandwich and jason at work on friday. Past Patient History - Infectious Disease Hx of Infectious Diseases: None - Past Social History Smoking Status: Never Smoked Chewing Tobacco Use: No Cigar Use: No Alcohol: Occasional Drugs: Cannabis - CARDIAC Hx Cardiac Disorders: No - PULMONARY Hx Respiratory Disorders: No - NEUROLOGICAL Hx Neurological Disorder: No - HEENT Hx HEENT Problems: No - RENAL Hx Chronic Kidney Disease: Yes Hx Kidney Stones: Yes - ENDOCRINE/METABOLIC Hx Endocrine Disorders: No - HEMATOLOGICAL/ONCOLOGICAL Hx Cirrhosis: No Hx Hepatitis A: No Hx Hepatitis B: No Hx Hepatitis C: No Hx Human Immunodeficiency Virus (HIV): No - MUSCULOSKELETAL/RHEUMATOLOGICAL Hx Falls: No - GASTROINTESTINAL Hx Gastrointestinal Disorders: No - PSYCHIATRIC Hx Substance Use: Yes (linda) - SURGICAL HISTORY Hx Surgeries: No - ANESTHESIA Hx Anesthesia: No Hx Anesthesia Reactions: No Meds Allergies/Adverse Reactions: Allergies Allergy/AdvReac Type Severity Reaction Status Date / Time No Known Allergies Allergy Verified 05/25/17 07:32 - Medications Medications: Current Medications Enoxaparin Sodium (Lovenox) 40 mg SC DAILY [facility]BA Ciprofloxacin (Cipro 400mg/200ml Dsw) 400 mg in 200 mls @ 133 mls/hr IVPB Q12H [facility] PRN Reason: Protocol Last Admin: 05/28/17 04:17 Dose: 133 mls/hr Metronidazole (Flagyl) 500 mg in 100 mls @ 100 mls/hr IVPB Q8 [facility] PRN Reason: Protocol Last Admin: 05/28/17 05:08 Dose: 100 mls/hr Sodium Chloride (Sodium Chloride 0.9%) 1,000 mls @ 100 mls/hr IV .Q10H ALBA Last Admin: 05/28/17 04:17 Dose: Not Given Pantoprazole Sodium (Protonix Inj) 40 mg IVP DAILY ALBA Last Admin: 05/27/17 17:50 Dose: 40 mg Physical Exam - Constitutional Appears: No Acute Distress - Head Exam Head Exam: ATRAUMATIC, NORMOCEPHALIC - Eye Exam Eye Exam: EOMI, PERRL - Respiratory Exam Respiratory Exam: NORMAL BREATHING PATTERN - Cardiovascular Exam Cardiovascular Exam: REGULAR RHYTHM, +S1 - GI/Abdominal Exam GI & Abdominal Exam: Guarding, Hyperactive Bowel Sounds, Soft, Tenderness. absent: Distended, Mass, Rebound, Rigid - Rectal Exam Rectal Exam: Deferred - Extremities Exam Extremities exam: Positive for: normal inspection - Neurological Exam Neurological exam: Alert, Oriented x3 - Psychiatric Exam Psychiatric exam: Normal Affect, Normal Mood - Skin Skin Exam: Dry, Warm Results - Vital Signs Recent Vital Signs: Last Vital Signs Temp 98.2 F 05/28/17 07:30 Pulse 56 L 05/28/17 07:30 Resp 18 05/28/17 07:30 BP 113/65 05/28/17 07:30 Pulse Ox 99 05/28/17 07:30 - Labs Result Diagrams: 05/28/17 05:58 05/28/17 05:58 Labs: Laboratory Results - last 24 hr 05/27/17 05/27/17 05/27/17 11:31 11:31 12:24 WBC 8.2 RBC 4.56 Hgb 14.0 Hct 41.0 MCV 90.0 MCH 30.7 MCHC 34.2 RDW 13.0 Plt Count 253 MPV 9.0 Neut % (Auto) 84.5 H Lymph % (Auto) 9.7 L Banks % (Auto) 5.0 Eos % (Auto) 0.5 Baso % (Auto) 0.3 Neut # (Auto) 6.9 Lymph # (Auto) 0.8 L [place] # (Auto) 0.4 Eos # (Auto) 0.0 Baso # (Auto) 0.0 Neutrophils % (Manual) 86 H Lymphocytes % (Manual) 7 L Monocytes % (Manual) 6 Eosinophils % (Manual) 1 Platelet Estimate Normal Sodium 141 Potassium 3.4 L Chloride 103 Carbon Dioxide 22 Anion Gap 19 BUN 8 L Creatinine 0.8 Est GFR ( Amer) > 60 Est GFR (Non-Af Amer) > 60 Random Glucose 114 H Calcium 8.6 Phosphorus Magnesium 1.4 L Total Bilirubin 0.6 AST 39 ALT 83 H Alkaline Phosphatase 56 Total Protein 7.7 Albumin 4.4 Globulin 3.3 Albumin/Globulin Ratio 1.3 Amylase 86 Lipase 70 Testosterone Level Urine Color Urine Clarity Urine pH Ur Specific [place] Urine Protein Urine Glucose (UA) Urine Ketones Urine Blood Urine Nitrate Urine Bilirubin Urine Urobilinogen Ur Leukocyte Esterase Urine WBC (Auto) Urine RBC (Auto) Urine Opiates Screen Urine Methadone Screen Ur Barbiturates Screen Ur Phencyclidine Scrn Ur Amphetamines Screen U Benzodiazepines Scrn U Oth Cocaine Metabols U Cannabinoids Screen Alcohol, Quantitative < 10 05/27/17 05/27/17 05/28/17 14:00 15:09 05:58 WBC 6.8 RBC 4.49 Hgb 13.9 Hct 40.1 MCV 89.5 MCH 31.0 MCHC 34.6 RDW 13.2 Plt Count 246 MPV 8.5 Neut % (Auto) 56.0 Lymph % (Auto) 30.4 Banks % (Auto) 11.2 H Eos % (Auto) 1.7 Baso % (Auto) 0.7 Neut # (Auto) 3.8 Lymph # (Auto) 2.1 Banks # (Auto) 0.8 Eos # (Auto) 0.1 Baso # (Auto) 0.0 Neutrophils % (Manual) Lymphocytes % (Manual) Monocytes % (Manual) Eosinophils % (Manual) Platelet Estimate Sodium Potassium Chloride Carbon Dioxide Anion Gap BUN Creatinine Est GFR ( Amer) Est GFR (Non-Af Amer) Random Glucose Calcium Phosphorus Magnesium Total Bilirubin AST ALT Alkaline Phosphatase Total Protein Albumin Globulin Albumin/Globulin Ratio Amylase Lipase Testosterone Level Urine Color Colorless Urine Clarity Clear Urine pH 8.0 Ur Specific [place] 1.048 H Urine Protein Negative Urine Glucose (UA) Normal Urine Ketones 1+ H Urine Blood Negative Urine Nitrate Negative Urine Bilirubin Negative Urine Urobilinogen Normal Ur Leukocyte Esterase Neg Urine WBC (Auto) < 1 Urine RBC (Auto) 1 Urine Opiates Screen Positive H Urine Methadone Screen Negative Ur Barbiturates Screen Negative Ur Phencyclidine Scrn Negative Ur Amphetamines Screen Negative U Benzodiazepines Scrn Negative U Oth Cocaine Metabols Negative U Cannabinoids Screen Positive H Alcohol, Quantitative 05/28/17 05:58 WBC RBC Hgb Hct MCV MCH MCHC RDW Plt Count MPV Neut % (Auto) Lymph % (Auto) [place] % (Auto) Eos % (Auto) Baso % (Auto) Neut # (Auto) Lymph # (Auto) [place] # (Auto) Eos # (Auto) Baso # (Auto) Neutrophils % (Manual) Lymphocytes % (Manual) Monocytes % (Manual) Eosinophils % (Manual) Platelet Estimate Sodium 141 Potassium 3.8 Chloride 106 Carbon Dioxide 23 Anion Gap 15 BUN 9 Creatinine 0.9 Est GFR ( Amer) > 60 Est GFR (Non-Af Amer) > 60 Random Glucose 98 Calcium 8.6 Phosphorus 3.3 Magnesium 2.2 Total Bilirubin 0.8 AST 28 ALT 63 Alkaline Phosphatase 36 L D Total Protein 6.8 Albumin 3.7 Globulin 3.1 Albumin/Globulin Ratio 1.2 Amylase Lipase Testosterone Level 484 Urine Color Urine Clarity Urine pH Ur Specific [place] Urine Protein Urine Glucose (UA) Urine Ketones Urine Blood Urine Nitrate Urine Bilirubin Urine Urobilinogen Ur Leukocyte Esterase Urine WBC (Auto) Urine RBC (Auto) Urine Opiates Screen Urine Methadone Screen Ur Barbiturates Screen Ur Phencyclidine Scrn Ur Amphetamines Screen U Benzodiazepines Scrn U Oth Cocaine Metabols U Cannabinoids Screen Alcohol, Quantitative - Imaging and Cardiology CT scan - abdomen Status: Image reviewed by me, Report reviewed by me Assessment & Plan (1) Lower abdominal pain Assessment and Plan: Symptoms and findings likely due to an acute gastroenteritis. Patient was non- compliant upon discharge with medication and diet. h/o drug use also of note. No CT evidence to suggest IBD or obstruction. Stool studies as ordered Antibiotics started by primary care team already IV fluids and advance diet as symptoms improve Observe Status: Acute (2) Vomiting and diarrhea Status: Acute (3) Substance abuse Assessment and Plan: As per primary care team and psych evaluation (cannabis and opioids on drug screen) Status: Acute
[2017-05-28] MEDS: Enoxaparin 40 mg Syringe SC SCH (10:11)
--- NOTE | 2017-05-28 13:12 | CP.PCM.PN ---
<Candido Velasco - Last Filed: 05/28/17 13:07> Subjective - Date & Time of Evaluation Date of Evaluation: 05/28/17 Time of Evaluation: 10:00 - Subjective Subjective: PGY-[address] Simpson. No acute events noted overnight. 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 Otherwise did not offer other complaints. Denied nausea/vomiting, fever, chills, abdominal pain, diarrhea, pain. Objective - Vital Signs/Intake and Output Vital Signs (last 24 hours): Temp Pulse Resp BP Pulse Ox 98.2 F 56 L 18 113/65 99 05/28/17 07:30 05/28/17 07:30 05/28/17 07:30 05/28/17 07:30 05/28/17 07:30 - Medications Medications: Current Medications Enoxaparin Sodium (Lovenox) 40 mg SC DAILY [facility] Last Admin: 05/28/17 10:11 Dose: 40 mg Ciprofloxacin (Cipro 400mg/200ml Dsw) 400 mg in 200 mls @ 133 mls/hr IVPB Q12H [facility]BA PRN Reason: Protocol Last Admin: 05/28/17 04:17 Dose: 133 mls/hr Metronidazole (Flagyl) 500 mg in 100 mls @ 100 mls/hr IVPB Q8 [facility]BA PRN Reason: Protocol Last Admin: 05/28/17 05:08 Dose: 100 mls/hr Sodium Chloride (Sodium Chloride 0.9%) 1,000 mls @ 100 mls/hr IV .Q10H [facility] Last Admin: 05/28/17 11:17 Dose: 100 mls/hr Pantoprazole Sodium (Protonix Inj) 40 mg IVP DAILY [facility] Last Admin: 05/28/17 10:11 Dose: 40 mg - Labs Labs: 05/28/17 05:58 05/28/17 05:58 - Additional Findings Additional findings: - Constitutional Appears: Well, Non-toxic, No Acute Distress - Head Exam Head Exam: ATRAUMATIC, NORMAL INSPECTION - Eye Exam Eye Exam: EOMI Pupil Exam: PERRL - ENT Exam ENT Exam: Mucous Membranes Moist - Neck Exam Neck exam: Positive for: Full Rom, Normal Inspection. Negative for: Lymphadenopathy, Tenderness - Respiratory Exam Respiratory Exam: Clear to Auscultation Bilateral, NORMAL BREATHING PATTERN. absent: Rales, Rhonchi, Wheezes - Cardiovascular Exam Cardiovascular Exam: REGULAR RHYTHM, +S1, +S2. absent: Bradycardia, Tachycardia , JVD, Systolic Murmur - GI/Abdominal Exam GI & Abdominal Exam: Normal Bowel Sounds, Soft, Tenderness. absent: Distended, Firm, Guarding, Hernia, Mass, Organomegaly, Pulsatile Mass, Rebound, Rigid Additional comments: NO tenderness to palpation in periumbilical region - Rectal Exam Rectal Exam: Deferred - Extremities Exam Extremities exam: Positive for: normal capillary refill, normal inspection, pedal pulses present. Negative for: calf tenderness, pedal edema, tenderness - Back Exam Back exam: NORMAL INSPECTION. absent: CVA tenderness (L), CVA tenderness (R), rash noted - Neurological Exam Neurological exam: Alert, CN II-XII Intact, Oriented x3, Reflexes Normal - Psychiatric Exam Psychiatric exam: Normal Affect, Normal Mood Additional comments: Denies suicidal ideation - Skin Skin Exam: Intact, Normal Color, Warm Assessment and Plan (1) Abdominal discomfort Status: Acute (2) Free fluid in pelvis Status: Acute (3) Suicidal ideation Status: Acute (4) Prophylactic measure Status: Acute - Assessment and Plan (Free Text) Assessment: (1) Abdominal discomfort Assessment and Plan: Patient discharged yesterday - felt well - then smoked marijuana and symptoms (N /V, abd discomfort) returned few hours later. Cyclic vomiting syndrome 2/2 to daily chronic marijuana use? Will investigate other infectious/pathological etiologies of symptoms. Left shift resolved, no bands. Afebrile. No leukocytosis. F/U C.Diff, Stool Cx, H.Pylori, Ova and parasites Advanced to clear liquid diet GI consult, Dr Nanette Ceron - Help appreciated * Seen by Dr Ceron - agrees with our plan (see full note) Meds: Cipro 400mg IV Q12H Flagyl 500mg IV Q8H NS @ 100cc/hr Zofran 4mg IVP Q12H PRN Protonix 40mg IVP QD Imaging: CT abd/pelvis w/ IV contrast 05/24/17: Large amount of stool in the colon and nonspecific right colonic thickening. Correlation with patient's clinical history of constipation versus stool related colitis versus nonspecific colitis is recommended. CT abd/pelvis w/ IV contrast 05/27/17: Small pelvic free fluid, unusual in a young male patient. Nonspecific prominent fluid filled small bowel loop in the right lower quadrant. Bowel loops appear otherwise unremarkable. Moderate constipation. F/U Abdominal Ultrasound: NORMAL Status: Acute Priority: High (2) Free fluid in pelvis Assessment and Plan: Denies scrotal swelling, dysuria, inguinal pain, CVA tenderness Urinalysis showed specfic gravity 1.048 and 1+ ketones F/U Urine Cx Imaging: CT abd/pelvis w/ IV contrast 05/24/17: Large amount of stool in the colon and nonspecific right colonic thickening. Correlation with patient's clinical history of constipation versus stool related colitis versus nonspecific colitis is recommended. CT abd/pelvis w/ IV contrast 05/27/17: Small pelvic free fluid, unusual in a young male patient. Nonspecific prominent fluid filled small bowel loop in the right lower quadrant. Bowel loops appear otherwise unremarkable. Moderate constipation. Status: Acute Priority: High (3) Suicidal ideation Assessment and Plan: Patient threatened to jump off aly to ER resident if not properly treated. To hand sign writer patient denied suicidal ideation. He stated he just wants relief of his symptoms. No hx of suicide attempts. Psych consult, Dr Patel * Does not believe patient is depressed - Psych has signed off. Status: Acute Priority: High (4) Prophylactic measure Assessment and Plan: Protonix 40mg IVP QD Lovenox 40mg SC QD, SCDs not indicated Clear liquid diet Status: Acute Priority: Low <Dolores Simpson V - Last Filed: 05/28/17 16:29> Objective - Vital Signs/Intake and Output Vital Signs (last 24 hours): Temp Pulse Resp BP Pulse Ox 98.2 F 56 L 18 113/65 99 05/28/17 07:30 05/28/17 07:30 05/28/17 07:30 05/28/17 07:30 05/28/17 07:30 Intake and Output: 05/28/17 05/28/17 06:59 18:59 Intake Total 980 Balance 980 - Medications Medications: Current Medications Enoxaparin Sodium (Lovenox) 40 mg SC DAILY [facility] Last Admin: 05/28/17 10:11 Dose: 40 mg Ciprofloxacin (Cipro 400mg/200ml Dsw) 400 mg in 200 mls @ 133 mls/hr IVPB Q12H [facility]BA PRN Reason: Protocol Last Admin: 05/28/17 04:17 Dose: 133 mls/hr Metronidazole (Flagyl) 500 mg in 100 mls @ 100 mls/hr IVPB Q8 [facility] PRN Reason: Protocol Last Admin: 05/28/17 13:27 Dose: 100 mls/hr Sodium Chloride (Sodium Chloride 0.9%) 1,000 mls @ 100 mls/hr IV .Q10H [facility] Last Admin: 05/28/17 11:17 Dose: 100 mls/hr Pantoprazole Sodium (Protonix Inj) 40 mg IVP DAILY [facility] Last Admin: 05/28/17 10:11 Dose: 40 mg - Labs Labs: 05/28/17 05:58 05/28/17 05:58 Attending/Attestation - Attestation I have personally seen and examined this patient.: Yes I have fully participated in the care of the patient.: Yes I have reviewed all pertinent clinical information, including history, physical exam and plan: Yes Notes (Text): Patient seen, examined and case discussed with day-time resident. Patient seen this morning. Patient reports he is feeling better. He reported he had abdominal discomfort earlier which is resolved. He denies nausea, denies vomitting, denies diarrhea. He was seen and evaluated by both GI and psych prior to our arrival help appreciated. Per GI, recommend for IV fluids and advance diet as tolerated. Will observe patient on liquid diet and see if symptoms continue to resolve Pending studies Will continue IV abx Considering possible discharge tomorrow. Assessment/Plan (1) Possible Cannabis Hyperemesis Gastroenteritis Abdominal discomfort Assessment and Plan: * Patient discharged 05/26 - felt well - then smoked marijuana in the evening and symptoms (N/V, abd discomfort) returned few hours later. * Cyclic vomiting syndrome 2/2 to daily chronic marijuana use? Will investigate other infectious/pathological etiologies of symptoms. * Left shift resolved, no bands. Afebrile. No leukocytosis. * F/U C.Diff, Stool Cx, H.Pylori, Ova and parasites * Advanced to clear liquid diet * GI consult, Dr Nanette Ceron - Help appreciated * Seen by Dr Ceron - help appreciated Meds: * Cipro 400mg IV Q12H (active since 05/27/17) * Flagyl 500mg IV Q8H (active since 05/27/17) * NS @ 100cc/hr * Protonix 40mg IVP QDaily * Diet advanced to liquid Imaging: * CT abd/pelvis w/ IV contrast 05/24/17: Large amount of stool in the colon and nonspecific right colonic thickening. Correlation with patient's clinical history of constipation versus stool related colitis versus nonspecific colitis is recommended. CT abd/pelvis w/ IV contrast 05/27/17: Small pelvic free fluid, unusual in a young male patient. Nonspecific prominent fluid filled small bowel loop in the right lower quadrant. Bowel loops appear otherwise unremarkable. Moderate constipation. * Abdominal Ultrasound: NORMAL Status: Acute Priority: High (2) Free fluid in pelvis Assessment and Plan: * Denies scrotal swelling, dysuria, inguinal pain, CVA tenderness * Urinalysis showed specfic gravity 1.048 and 1+ ketones * F/U Urine Cx Imaging: * CT abd/pelvis w/ IV contrast 05/24/17: Large amount of stool in the colon and nonspecific right colonic thickening. Correlation with patient's clinical history of constipation versus stool related colitis versus nonspecific colitis is recommended. * CT abd/pelvis w/ IV contrast 05/27/17: Small pelvic free fluid, unusual in a young male patient. Nonspecific prominent fluid filled small bowel loop in the right lower quadrant. Bowel loops appear otherwise unremarkable. Moderate constipation. * Abdominal US (05/27/17): unremarkable abdominal sonogram with findings as above. Status: Acute Priority: High (3) Suicidal ideation (resolved) Assessment and Plan: * Patient threatened to jump off aly to ER resident if not properly treated. patient was evaluated by Amy in the Ed, stable and cleared. No hx of suicide attempts. * Psych consult, Dr Patel help appreciated * Does not believe patient is depressed - Psych has signed off. Status: Acute Priority: High (4) Cannabis Abuse Assessment and Plan: * patient admits and is aware of the adverse side effects of continued heavy cannabis use (5) Narcotic in UDS Assessment and Plan: * Patient had received Morphine 2mg IV X1 prior to UDS collection in the ED on admission. Patient was not discharged on narcotic medication. (6) Prophylactic measure Assessment and Plan: * Protonix 40mg IVP QDaily * Lovenox 40mg SC QD, SCDs not indicated * Clear liquid diet Status: Acute Priority: Low
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
[2017-05-29] MEDS: Sodium Chloride 0.9% 1,000 ML IV SCH ×2 (04:34→09:40)
[2017-05-29] MEDS: Ciprofloxacin 400mg/200ml D5W 400 MG/200 ML BAG IVPB SCH (04:34)
[2017-05-29] MEDS: metroNIDAZOLE IV 500 mg/100 ml 500 MG/100 ML BAG IVPB SCH (06:00)
[2017-05-29 08:47] VITALS: BP 145/63; PULSE 58; RESP 18; TEMP 98; O2SAT 100
[2017-05-29 08:55] LABS: BASO % 0.7 % (0.0-2.0); EOS # 0.3 K/uL (0.0-0.7); EOS % 5.9 % (0.0-4.0); HEMOGLOBIN 13.3 g/dL (12.0-18.0); LYMPH # 1.8 K/uL (1.0-4.3); LYMPH % 34.9 % (20.0-40.0); MEAN CORPUSCULAR HEMOGLOBIN 30.6 pg (27.0-31.0); MEAN CORPUSCULAR HGB CONC 34.4 g/dL (33.0-37.0); MEAN PLATELET VOLUME 8.8 fL (7.2-11.7); MONO # 0.6 K/uL (0.0-0.8); MONO % 11.5 % (0.0-10.0); NEUT # 2.4 K/uL (1.8-7.0); NRBC % 0.1 % (0.0-2.0); RBC 4.34 Mil/uL (4.40-5.90); RED CELL DISTRIBUTION WIDTH 13.1 % (11.5-14.5); WHITE BLOOD COUNT 5.1 K/uL (4.8-10.8)
[2017-05-29 09:12] LABS: ALB/GLOB RATIO 1.3 (1.0-2.1); ALBUMIN 3.8 g/dL (3.5-5.0); ALT/SGPT 56 U/L (21-72); AST/SGOT 22 U/L (17-59); BLOOD UREA NITROGEN 10 mg/dL (9-20); CALCIUM 8.6 mg/dl (8.6-10.4); GFR AFRICAN-AMERICAN > 60; GFR NON-AFRICAN AMERICAN > 60
--- NOTE | 2017-05-29 09:31 | CP.PCM.PN ---
Subjective - Date & Time of Evaluation Date of Evaluation: 05/29/17 Time of Evaluation: 09:29 - Subjective Subjective: tolerating liquid diet. On small formed stool yesterday. All studies negative thus far No pain. Objective - Vital Signs/Intake and Output Vital Signs (last 24 hours): Temp Pulse Resp BP Pulse Ox 98.0 F 58 L 18 145/63 100 05/29/17 07:50 05/29/17 07:50 05/29/17 07:50 05/29/17 07:50 05/29/17 07:50 Intake and Output: 05/29/17 05/29/17 06:59 18:59 Intake Total 2560 Output Total 650 Balance 1910 - Medications Medications: Current Medications Enoxaparin Sodium (Lovenox) 40 mg SC DAILY [facility] Last Admin: 05/28/17 10:11 Dose: 40 mg Ciprofloxacin (Cipro 400mg/200ml Dsw) 400 mg in 200 mls @ 133 mls/hr IVPB Q12H [facility] PRN Reason: Protocol Last Admin: 05/29/17 04:34 Dose: 133 mls/hr Metronidazole (Flagyl) 500 mg in 100 mls @ 100 mls/hr IVPB Q8 [facility] PRN Reason: Protocol Last Admin: 05/29/17 06:00 Dose: 100 mls/hr Sodium Chloride (Sodium Chloride 0.9%) 1,000 mls @ 100 mls/hr IV .Q10H [facility] Last Admin: 05/29/17 04:34 Dose: 100 mls/hr Pantoprazole Sodium (Protonix Inj) 40 mg IVP DAILY [facility] Last Admin: 05/28/17 10:11 Dose: 40 mg - Labs Labs: 05/29/17 08:41 05/29/17 08:41 - Constitutional Appears: No Acute Distress - Head Exam Head Exam: ATRAUMATIC, NORMOCEPHALIC - Eye Exam Eye Exam: EOMI, PERRL - Respiratory Exam Respiratory Exam: NORMAL BREATHING PATTERN - Cardiovascular Exam Cardiovascular Exam: REGULAR RHYTHM - GI/Abdominal Exam GI & Abdominal Exam: Soft, Normal Bowel Sounds. absent: Distended, Guarding, Tenderness, Mass, Rebound - Extremities Exam Extremities Exam: Normal Inspection - Neurological Exam Neurological Exam: Alert, Oriented x3 - Psychiatric Exam Psychiatric exam: Anxious Assessment and Plan (1) Lower abdominal pain Assessment & Plan: resolved. Likely due to infectious gastroenteritis. Status: Acute (2) Vomiting and diarrhea Assessment & Plan: Likely infectious. Psych follow up as outpatient advised for cannabis addiction and psych disorder. Advance diet as tolerated. Stable from GI point of view. No further work up at this time. Clinic follow up as needed. Recall prn. Status: Acute (3) Substance abuse Status: Chronic
[2017-05-29] MEDS: Enoxaparin 40 mg Syringe SC SCH (09:38)
[2017-05-29] MEDS ORDERED: Aluminum Hydroxide/Magnesium Hydroxide Susp (30 mL) PO PRN (10:34)
--- NOTE | 2017-05-29 13:07 | CP.PCM.DIS ---
<Candido Velasco - Last Filed: 05/29/17 13:10> Provider - Provider Date of Admission: 05/27/17 15:06 Attending physician: Dolores Simpson DO Primary care physician: PMD: none Consults: GI: Dr Ceron Time Spent in preparation of Discharge (in minutes): 42 Diagnosis - Discharge Diagnosis (1) Abdominal discomfort Status: Resolved Priority: High (2) Free fluid in pelvis Status: Resolved Priority: High (3) Suicidal ideation Status: Resolved Priority: High (4) Prophylactic measure Status: Resolved Priority: Low Hospital Course - Lab Results Lab Results: Micro Results 05/27/17 18:00 Blood Blood Culture - Preliminary NO GROWTH AFTER 24 HOURS 05/27/17 18:30 Blood Blood Culture - Preliminary NO GROWTH AFTER 24 HOURS Most Recent Lab Values WBC 5.1 K/uL (4.8-10.8) 05/29/17 08:41 RBC 4.34 Mil/uL (4.40-5.90) L 05/29/17 08:41 Hgb 13.3 g/dL (12.0-18.0) 05/29/17 08:41 Hct 38.6 % (35.0-51.0) 05/29/17 08:41 MCV 89.0 fL (80.0-94.0) 05/29/17 08:41 MCH 30.6 pg (27.0-31.0) 05/29/17 08:41 MCHC 34.4 g/dL (33.0-37.0) 05/29/17 08:41 RDW 13.1 % (11.5-14.5) 05/29/17 08:41 Plt Count 250 K/uL (130-400) 05/29/17 08:41 MPV 8.8 fL (7.2-11.7) 05/29/17 08:41 Neut % (Auto) 47.0 % (50.0-75.0) L 05/29/17 08:41 Lymph % (Auto) 34.9 % (20.0-40.0) 05/29/17 08:41 Childress % (Auto) 11.5 % (0.0-10.0) H 05/29/17 08:41 Eos % (Auto) 5.9 % (0.0-4.0) H 05/29/17 08:41 Baso % (Auto) 0.7 % (0.0-2.0) 05/29/17 08:41 Neut # (Auto) 2.4 K/uL (1.8-7.0) 05/29/17 08:41 Lymph # (Auto) 1.8 K/uL (1.0-4.3) 05/29/17 08:41 Childress # (Auto) 0.6 K/uL (0.0-0.8) 05/29/17 08:41 Eos # (Auto) 0.3 K/uL (0.0-0.7) 05/29/17 08:41 Baso # (Auto) 0.0 K/uL (0.0-0.2) 05/29/17 08:41 Neutrophils % (Manual) 86 % (50-75) H 05/27/17 11:31 Lymphocytes % (Manual) 7 % (20-40) L 05/27/17 11:31 Monocytes % (Manual) 6 % (0-10) 05/27/17 11:31 Eosinophils % (Manual) 1 % (0-4) 05/27/17 11:31 Platelet Estimate Normal (NORMAL) 05/27/17 11:31 Sodium 141 mmol/L (132-148) 05/29/17 08:41 Potassium 3.9 mmol/L (3.6-5.2) 05/29/17 08:41 Chloride 104 mmol/L (98-107) 05/29/17 08:41 Carbon Dioxide 24 mmol/L (22-30) 05/29/17 08:41 Anion Gap 18 (10-20) 05/29/17 08:41 BUN 10 mg/dL (9-20) 05/29/17 08:41 Creatinine 0.9 mg/dL (0.8-1.5) 05/29/17 08:41 Est GFR ( Amer) > 60 05/29/17 08:41 Est GFR (Non-Af Amer) > 60 05/29/17 08:41 Random Glucose 79 mg/dL (75-110) 05/29/17 08:41 Calcium 8.6 mg/dl (8.6-10.4) 05/29/17 08:41 Phosphorus 3.3 mg/dL (2.5-4.5) 05/29/17 08:41 Magnesium 1.8 mg/dL (1.6-2.3) 05/29/17 08:41 Total Bilirubin 0.8 mg/dL (0.2-1.3) 05/29/17 08:41 AST 22 U/L (17-59) 05/29/17 08:41 ALT 56 U/L (21-72) 05/29/17 08:41 Alkaline Phosphatase 39 U/L (38-126) 05/29/17 08:41 Total Protein 6.6 g/dL (6.3-8.3) 05/29/17 08:41 Albumin 3.8 g/dL (3.5-5.0) 05/29/17 08:41 Globulin 2.8 gm/dL (2.2-3.9) 05/29/17 08:41 Albumin/Globulin Ratio 1.3 (1.0-2.1) 05/29/17 08:41 Amylase 86 U/L (30-110) 05/27/17 11:31 Lipase 70 U/L (23-300) 05/27/17 11:31 Testosterone Level 484 ng/mL 05/28/17 05:58 Urine Color Colorless (YELLOW) 05/27/17 15:09 Urine Clarity Clear (Clear) 05/27/17 15:09 Urine pH 8.0 (5.0-8.0) 05/27/17 15:09 Ur Specific Fonda 1.048 (1.003-1.030) H 05/27/17 15:09 Urine Protein Negative mg/dL (NEGATIVE) 05/27/17 15:09 Urine Glucose (UA) Normal mg/dL (Normal) 05/27/17 15:09 Urine Ketones 1+ mg/dL (NEGATIVE) H 05/27/17 15:09 Urine Blood Negative (NEGATIVE) 05/27/17 15:09 Urine Nitrate Negative (NEGATIVE) 05/27/17 15:09 Urine Bilirubin Negative (NEGATIVE) 05/27/17 15:09 Urine Urobilinogen Normal mg/dL (0.2-1.0) 05/27/17 15:09 Ur Leukocyte Esterase Neg Sandee/uL (Negative) 05/27/17 15:09 Urine WBC (Auto) < 1 /hpf (0-5) 05/27/17 15:09 Urine RBC (Auto) 1 /hpf (0-3) 05/27/17 15:09 Stool Occult Blood Negative (NEGATIVE) 05/28/17 16:47 Stool Leukocytes, Qual Negative (NEGATIVE) 05/28/17 Unknown Urine Opiates Screen Positive (NEGATIVE) H 05/27/17 14:00 Urine Methadone Screen Negative (NEGATIVE) 05/27/17 14:00 Ur Barbiturates Screen Negative (NEGATIVE) 05/27/17 14:00 Ur Phencyclidine Scrn Negative (NEGATIVE) 05/27/17 14:00 Ur Amphetamines Screen Negative (NEGATIVE) 05/27/17 14:00 U Benzodiazepines Scrn Negative (NEGATIVE) 05/27/17 14:00 U Oth Cocaine Metabols Negative (NEGATIVE) 05/27/17 14:00 U Cannabinoids Screen Positive (NEGATIVE) H 05/27/17 14:00 Alcohol, Quantitative < 10 mg/dl (0-10) 05/27/17 12:24 C. difficile Ag & Toxin Negative (NEGATIVE) 05/28/17 Unknown - Hospital Course Hospital Course: HPI (on admission): PGY1 resident - medicine H&P CC: N/V and abdominal discomfort HPI: Patient is a 21 year old male who presents for abdominal pain and vomiting. Patient was recently discharged from this hospital yesterday, after being admitted for similar complaints; while infectious process was not suspected, patient was discharged with Rx for Cipro and Flagyl. Patient was instructed to reduce cannabis use, as it could have contributed to his symptoms. Patient states that he arrived home yesterday after discharge at 3pm, smoked 1 blunt (states it was his last one), took a shower, and felt well; he ate grapes, strawberries and rice with no nausea/vomiting, took his dog out for a walk and played video games. He did not get the Rx filled for Cipro and Flagyl and thus didn't take either. He went to sleep feeling well without any complaints. Today patient woke up at 6:30am with abdominal pain, described as diffuse but worse in the lower abdomen, constant but waxing/waning, cramping, worse with breathing. He tried drinking water and Pepto-Bismol with no improvement, and subsequently vomited 6x (green/yellow/brown vomitous, non- bloody). Pain was improved for a few seconds with vomiting, but then returned. He notes feeling hot/cold, diaphoretic, and dizzy for a few seconds with the vomiting. He did not eat or drink anything else. He called the ambulance at 7: 30am, which took him to [facility]. He felt that he was was not being treated well, so he signed out AMA and took an Uber to this hospital (vomited x 4 in the Uber car). He states that he vomited multiple times here in the ED. At present, patient report nausea and abdominal discomfort. He states he just feels "desperate" to feel better. Last bowel movement was just prior to CT scan in the ED--it was a small amount of brown solid/liquid. Otherwise he denies chest pain, SOB, cough, hematochezia, melena, dysuria, leg pain/swelling, testicular pain/swelling, back pain, recent travel, sick contacts, recent illness other than this recent episode. He denies a known family history of colon CA, IBD, Celiac's disease. Denies using any other substances besides marijuana. Denies use of steroids/ testosterone/any other injections. PMHx: kidney stones 2017 s/p lithotripsy + L ureter stent PSHx: lithotripsy + L ureter stent in 2017 (removed after 2 wks) Meds: none Allergies: NKDA FamHx: Dad w/ DM, HTN; Mom healthy SocHx: Social ETOH (1 beer/mo); Quit tobacco 2yrs ago (formerly 1ppd x5yrs); + Marijuana (1 blunt per day) PMD: none Code status: Full Code No advance directive In the event that patient cannot make healthcare decisions for himself, he wants his cousin Mae Velazquez ([phone]) to make decisions for him. HOSPITAL COURSE: This is a 21 year old male who was admitted for abdominal pain and vomiting. Symptoms may have been due to cyclic vomiting syndrome from marijuana use, as patient is a chornic daily marijuana smoker and smoked marijuana upon discharge from the hospital despite being encouraged to stop. Patient was afebrile throughout hospital stay without leukocytosis. C. diff toxin was negative, final stool culture was negative for salmonella, shigella or campylobacter, stool was negative for ova and parasites, and preliminary blood cultures showed no growth. Patient was treated with Cipro and Flagyl. CT abd/pelvis from 05/27/17 noted a small amount of free fluid in the pelvis, which is unusual for a male patient this age. However, abdominal ultrasound from 05/27/17 was unremarkable, as noted below. Patient did not have any scrotal/ inguinal pain, urinary symptoms, or CVA tenderness. Urine analysis showed specific gravity 1.048 (high) and 1+ ketones. Consulted psychiatrist Dr. Patel because patient initially stated he wanted to kill himself due to the pain; however, he later said that he had just been desperate to have his pain improved when he said that. He denied suicidal ideation, and was cleared by psychiatry with recommendation to comply with medical care, maintain a healthy lifestyle, and referral to an outpatient program. Consulted lending activities supervisor Dr. Lars Ceron, who attributed symptoms to an acute gastroenteritis and recommended continued management per the primary team , including observation, IV fluids, and antibiotics. Patient improved throughout hospital stay, and was able to tolerate a regular diet upon discharge. Patient was strongly encouraged to discontinue cannabis use , as it may have contributed to his symptoms of abdominal pain and vomiting. The last progress note is included below for completion sake: (1) Possible Cannabis Hyperemesis Gastroenteritis Abdominal discomfort Assessment and Plan: * Patient discharged 05/26 - felt well - then smoked marijuana in the evening and symptoms (N/V, abd discomfort) returned few hours later. * Cyclic vomiting syndrome 2/2 to daily chronic marijuana use? Will investigate other infectious/pathological etiologies of symptoms. * Left shift resolved, no bands. Afebrile. No leukocytosis. * F/U C.Diff, Stool Cx, H.Pylori, Ova and parasites * Advanced to clear liquid diet * GI consult, Dr Nanette Ceron - Help appreciated * Seen by Dr Ceron - help appreciated Meds: * Cipro 400mg IV Q12H (active since 05/27/17) * Flagyl 500mg IV Q8H (active since 05/27/17) * NS @ 100cc/hr * Protonix 40mg IVP QDaily * Diet advanced to liquid Imaging: * CT abd/pelvis w/ IV contrast 05/24/17: Large amount of stool in the colon and nonspecific right colonic thickening. Correlation with patient's clinical history of constipation versus stool related colitis versus nonspecific colitis is recommended. CT abd/pelvis w/ IV contrast 05/27/17: Small pelvic free fluid, unusual in a young male patient. Nonspecific prominent fluid filled small bowel loop in the right lower quadrant. Bowel loops appear otherwise unremarkable. Moderate constipation. * Abdominal Ultrasound: NORMAL Status: Acute Priority: High (2) Free fluid in pelvis Assessment and Plan: * Denies scrotal swelling, dysuria, inguinal pain, CVA tenderness * Urinalysis showed specfic gravity 1.048 and 1+ ketones * F/U Urine Cx Imaging: * CT abd/pelvis w/ IV contrast 05/24/17: Large amount of stool in the colon and nonspecific right colonic thickening. Correlation with patient's clinical history of constipation versus stool related colitis versus nonspecific colitis is recommended. * CT abd/pelvis w/ IV contrast 05/27/17: Small pelvic free fluid, unusual in a young male patient. Nonspecific prominent fluid filled small bowel loop in the right lower quadrant. Bowel loops appear otherwise unremarkable. Moderate constipation. * Abdominal US (05/27/17): unremarkable abdominal sonogram with findings as above. Status: Acute Priority: High (3) Suicidal ideation (resolved) Assessment and Plan: * Patient threatened to jump off aly to ER resident if not properly treated. patient was evaluated by Amy in the Ed, stable and cleared. No hx of suicide attempts. * Psych consult, Dr Patel help appreciated * Does not believe patient is depressed - Psych has signed off. Status: Acute Priority: High (4) Cannabis Abuse Assessment and Plan: * patient admits and is aware of the adverse side effects of continued heavy cannabis use (5) Narcotic in UDS Assessment and Plan: * Patient had received Morphine 2mg IV X1 prior to UDS collection in the ED on admission. Patient was not discharged on narcotic medication. (6) Prophylactic measure Assessment and Plan: * Protonix 40mg IVP QDaily * Lovenox 40mg SC QD, SCDs not indicated * Clear liquid diet Status: Acute Priority: Low Discharge Exam - Additional Findings Additional findings: - Constitutional Appears: Well, Non-toxic, No Acute Distress - Head Exam Head Exam: ATRAUMATIC, NORMAL INSPECTION - Eye Exam Eye Exam: EOMI Pupil Exam: PERRL - ENT Exam ENT Exam: Mucous Membranes Moist - Neck Exam Neck exam: Positive for: Full Rom, Normal Inspection. Negative for: Lymphadenopathy, Tenderness - Respiratory Exam Respiratory Exam: Clear to Auscultation Bilateral, NORMAL BREATHING PATTERN. absent: Rales, Rhonchi, Wheezes - Cardiovascular Exam Cardiovascular Exam: REGULAR RHYTHM, +S1, +S2. absent: Bradycardia, Tachycardia , JVD, Systolic Murmur - GI/Abdominal Exam GI & Abdominal Exam: Normal Bowel Sounds, Soft, Tenderness. absent: Distended, Firm, Guarding, Hernia, Mass, Organomegaly, Pulsatile Mass, Rebound, Rigid Additional comments: NO tenderness to palpation in periumbilical region - Rectal Exam Rectal Exam: Deferred - Extremities Exam Extremities exam: Positive for: normal capillary refill, normal inspection, pedal pulses present. Negative for: calf tenderness, pedal edema, tenderness - Back Exam Back exam: NORMAL INSPECTION. absent: CVA tenderness (L), CVA tenderness (R), rash noted - Neurological Exam Neurological exam: Alert, CN II-XII Intact, Oriented x3, Reflexes Normal - Psychiatric Exam Psychiatric exam: Normal Affect, Normal Mood Additional comments: Denies suicidal ideation - Skin Skin Exam: Intact, Normal Color, Warm Discharge Plan - Discharge Medications Prescriptions: Ciprofloxacin HCl [Cipro] 500 mg PO Q12H 4 Days #8 tablet metroNIDAZOLE [Flagyl] 500 mg PO Q8H 4 Days #12 tab Ondansetron ODT [Zofran ODT] 4 mg PO Q8H PRN #21 odt PRN Reason: Nausea/Vomiting - Follow Up Plan Condition: FAIR Disposition: HOME/ ROUTINE Instructions: Ciprofloxacin (Systemic), Metronidazole (Systemic), Acute Abdomen (Belly Pain), Adult (DC), Nausea and Vomiting, Adult (DC), Ondansetron Additional Instructions: Patient is medically stable for discharge. Patient is being discharged with the following scripts: 1. Ciprofloxacin 500mg taken by mouth once in the morning and once in the evening for 4 days 2. Metronidazole [Flagyl] 500mg taken by mouth once with breakfast, once with lunch, once with dinner, for 4 days 3. Zofran ODT 4mg taken by mouth as needed for nausea every 8 hours. Dispense 21 tablets. Patient was instructed how to avoid these recurring symptoms. Patient should establish care with a Primary Medical Doctor so if symptoms return but are mild he can go to his Primary Doctor instead of returning to the ER. However if symptoms are severe, please return to the ER. A primary medical doctor can be attained by calling the [facility]: [phone] <Dolores Simpson V - Last Filed: 05/30/17 06:34> Provider - Provider Date of Admission: 05/27/17 15:06 Attending physician: Dolores Simpson, Merged with [facility] Hospital Course - Lab Results Lab Results: Micro Results 05/28/17 Unknown Stool Stool Culture - Preliminary LACTOSE INFO SPECIALIST, SUB SELENITE BROTH. 05/27/17 18:00 Blood Blood Culture - Preliminary NO GROWTH AFTER 48 HOURS 05/27/17 18:30 Blood Blood Culture - Preliminary NO GROWTH AFTER 48 HOURS 05/28/17 Unknown Stool Ova and Parasite Concentrate Exam - Final Most Recent Lab Values WBC 5.1 K/uL (4.8-10.8) 05/29/17 08:41 RBC 4.34 Mil/uL (4.40-5.90) L 05/29/17 08:41 Hgb 13.3 g/dL (12.0-18.0) 05/29/17 08:41 Hct 38.6 % (35.0-51.0) 05/29/17 08:41 MCV 89.0 fL (80.0-94.0) 05/29/17 08:41 MCH 30.6 pg (27.0-31.0) 05/29/17 08:41 MCHC 34.4 g/dL (33.0-37.0) 05/29/17 08:41 RDW 13.1 % (11.5-14.5) 05/29/17 08:41 Plt Count 250 K/uL (130-400) 05/29/17 08:41 MPV 8.8 fL (7.2-11.7) 05/29/17 08:41 Neut % (Auto) 47.0 % (50.0-75.0) L 05/29/17 08:41 Lymph % (Auto) 34.9 % (20.0-40.0) 05/29/17 08:41 Childress % (Auto) 11.5 % (0.0-10.0) H 05/29/17 08:41 Eos % (Auto) 5.9 % (0.0-4.0) H 05/29/17 08:41 Baso % (Auto) 0.7 % (0.0-2.0) 05/29/17 08:41 Neut # (Auto) 2.4 K/uL (1.8-7.0) 05/29/17 08:41 Lymph # (Auto) 1.8 K/uL (1.0-4.3) 05/29/17 08:41 Childress # (Auto) 0.6 K/uL (0.0-0.8) 05/29/17 08:41 Eos # (Auto) 0.3 K/uL (0.0-0.7) 05/29/17 08:41 Baso # (Auto) 0.0 K/uL (0.0-0.2) 05/29/17 08:41 Neutrophils % (Manual) 86 % (50-75) H 05/27/17 11:31 Lymphocytes % (Manual) 7 % (20-40) L 05/27/17 11:31 Monocytes % (Manual) 6 % (0-10) 05/27/17 11:31 Eosinophils % (Manual) 1 % (0-4) 05/27/17 11:31 Platelet Estimate Normal (NORMAL) 05/27/17 11:31 Sodium 141 mmol/L (132-148) 05/29/17 08:41 Potassium 3.9 mmol/L (3.6-5.2) 05/29/17 08:41 Chloride 104 mmol/L (98-107) 05/29/17 08:41 Carbon Dioxide 24 mmol/L (22-30) 05/29/17 08:41 Anion Gap 18 (10-20) 05/29/17 08:41 BUN 10 mg/dL (9-20) 05/29/17 08:41 Creatinine 0.9 mg/dL (0.8-1.5) 05/29/17 08:41 Est GFR ( Amer) > 60 05/29/17 08:41 Est GFR (Non-Af Amer) > 60 05/29/17 08:41 Random Glucose 79 mg/dL (75-110) 05/29/17 08:41 Calcium 8.6 mg/dl (8.6-10.4) 05/29/17 08:41 Phosphorus 3.3 mg/dL (2.5-4.5) 05/29/17 08:41 Magnesium 1.8 mg/dL (1.6-2.3) 05/29/17 08:41 Total Bilirubin 0.8 mg/dL (0.2-1.3) 05/29/17 08:41 AST 22 U/L (17-59) 05/29/17 08:41 ALT 56 U/L (21-72) 05/29/17 08:41 Alkaline Phosphatase 39 U/L (38-126) 05/29/17 08:41 Total Protein 6.6 g/dL (6.3-8.3) 05/29/17 08:41 Albumin 3.8 g/dL (3.5-5.0) 05/29/17 08:41 Globulin 2.8 gm/dL (2.2-3.9) 05/29/17 08:41 Albumin/Globulin Ratio 1.3 (1.0-2.1) 05/29/17 08:41 Amylase 86 U/L (30-110) 05/27/17 11:31 Lipase 70 U/L (23-300) 05/27/17 11:31 Testosterone Level 484 ng/mL 05/28/17 05:58 Urine Color Colorless (YELLOW) 05/27/17 15:09 Urine Clarity Clear (Clear) 05/27/17 15:09 Urine pH 8.0 (5.0-8.0) 05/27/17 15:09 Ur Specific Fonda 1.048 (1.003-1.030) H 05/27/17 15:09 Urine Protein Negative mg/dL (NEGATIVE) 05/27/17 15:09 Urine Glucose (UA) Normal mg/dL (Normal) 05/27/17 15:09 Urine Ketones 1+ mg/dL (NEGATIVE) H 05/27/17 15:09 Urine Blood Negative (NEGATIVE) 05/27/17 15:09 Urine Nitrate Negative (NEGATIVE) 05/27/17 15:09 Urine Bilirubin Negative (NEGATIVE) 05/27/17 15:09 Urine Urobilinogen Normal mg/dL (0.2-1.0) 05/27/17 15:09 Ur Leukocyte Esterase Neg Sandee/uL (Negative) 05/27/17 15:09 Urine WBC (Auto) < 1 /hpf (0-5) 05/27/17 15:09 Urine RBC (Auto) 1 /hpf (0-3) 05/27/17 15:09 Stool Occult Blood Negative (NEGATIVE) 05/28/17 16:47 Stool Leukocytes, Qual Negative (NEGATIVE) 05/28/17 Unknown Urine Opiates Screen Positive (NEGATIVE) H 05/27/17 14:00 Urine Methadone Screen Negative (NEGATIVE) 05/27/17 14:00 Ur Barbiturates Screen Negative (NEGATIVE) 05/27/17 14:00 Ur Phencyclidine Scrn Negative (NEGATIVE) 05/27/17 14:00 Ur Amphetamines Screen Negative (NEGATIVE) 05/27/17 14:00 U Benzodiazepines Scrn Negative (NEGATIVE) 05/27/17 14:00 U Oth Cocaine Metabols Negative (NEGATIVE) 05/27/17 14:00 U Cannabinoids Screen Positive (NEGATIVE) H 05/27/17 14:00 Alcohol, Quantitative < 10 mg/dl (0-10) 05/27/17 12:24 C. difficile Ag & Toxin Negative (NEGATIVE) 05/28/17 Unknown Attending/Attestation - Attestation I have personally seen and examined this patient.: Yes I have fully participated in the care of the patient.: Yes I have reviewed all pertinent clinical information, including history, physical exam and plan: Yes Notes (Text): This is late computer entry for 05/29/17 Patient seen, examined and case discussed with day-time resident. Patient seen this morning. Patient reports he is feeling better reports mild nausea and mild abdominal discomfort. Patient tolerating clear liquid diet and advanced at lunch. Patient given PRN for nausea and upset stomach (Zofran and Maalox). Patient was seen and evaluated by GI, jem from their point of view no further workup. Blood cultures are negative to date. No ova and parasite noted in stool sample. Negative stool occult blood. Negative stool leukocytes. negative C dif. Afebrile and no leukocytosis. Discharge medications include: 1) Ciprofloxacin 500mg PO Q12H 2) Flagyl 500mg PO Q8H 3) Zofran 4mg PO Q8H PRN for nausea Patient advised to stop his cannabis use which is worsening his abdominal pain and nausea. This is a summary of patient's hospitalization. Please see EMR for further detail of record. Discharge Diagnoses: Possible Cannabis Hyperemesis (stable) Gastroenteritis (Stable) Abdominal discomfort-_>resolved Assessment and Plan: * Patient discharged 05/26 - felt well - then smoked marijuana in the evening and symptoms (N/V, abd discomfort) returned few hours later. * Cyclic vomiting syndrome 2/2 to daily chronic marijuana use? Will investigate other infectious/pathological etiologies of symptoms. * Left shift resolved, no bands. Afebrile. No leukocytosis. * Advanced as tolerated * Blood cultures are negative to date. No ova and parasite noted in stool sample. Negative stool occult blood. Negative stool leukocytes. negative C dif. Afebrile and no leukocytosis. * GI consult, Dr Nanette Ceron - Qi appreciated * Seen by Dr Ceron - qi appreciated Meds: * Cipro 400mg IV Q12H (active since 05/27/17) * Flagyl 500mg IV Q8H (active since 05/27/17) * NS @ 100cc/hr * Protonix 40mg IVP QDaily * Diet advanced to liquid Imaging: * CT abd/pelvis w/ IV contrast 05/24/17: Large amount of stool in the colon and nonspecific right colonic thickening. Correlation with patient's clinical history of constipation versus stool related colitis versus nonspecific colitis is recommended. CT abd/pelvis w/ IV contrast 05/27/17: Small pelvic free fluid, unusual in a young male patient. Nonspecific prominent fluid filled small bowel loop in the right lower quadrant. Bowel loops appear otherwise unremarkable. Moderate constipation. * Abdominal Ultrasound: NORMAL (2) Free fluid in pelvis (resolved) Assessment and Plan: * Denies scrotal swelling, dysuria, inguinal pain, CVA tenderness * Urinalysis showed specfic gravity 1.048 and 1+ ketones Imaging: * CT abd/pelvis w/ IV contrast 05/24/17: Large amount of stool in the colon and nonspecific right colonic thickening. Correlation with patient's clinical history of constipation versus stool related colitis versus nonspecific colitis is recommended. * CT abd/pelvis w/ IV contrast 05/27/17: Small pelvic free fluid, unusual in a young male patient. Nonspecific prominent fluid filled small bowel loop in the right lower quadrant. Bowel loops appear otherwise unremarkable. Moderate constipation. * Abdominal US (05/27/17): unremarkable abdominal sonogram with findings as above. (3) Suicidal ideation (resolved) Assessment and Plan: * Patient threatened to jump off aly to ER resident if not properly treated. patient was evaluated by Crisis in the Ed, stable and cleared. No hx of suicide attempts. * Psych consult, Dr Jorge busby appreciated * Does not believe patient is depressed - Psych has signed off. (4) Cannabis Abuse Assessment and Plan: * patient admits and is aware of the adverse side effects of continued heavy cannabis use and will stop (5) Narcotic in UDS Assessment and Plan: * Patient had received Morphine 2mg IV X1 prior to UDS collection in the ED on admission. Patient was not discharged on narcotic medication. (6) Prophylactic measure Assessment and Plan: * Protonix 40mg IVP QDaily * Lovenox 40mg SC QD, SCDs not indicated * Diet advanced as tolerated Status: Acute Priority: Low
== END 2017-05-29 12:52 | disposition home or self-care (01) ==
LOC: C.ER 10:37 → C.9E 15:06 → C.5S 19:13
PROVIDERS: ADMIT Hospitalist; ATTEND Hospitalist
DX: K59.00 Constipation, unspecified (principal); K52.9 Noninfective gastroenteritis and colitis, unspecified; N18.9 Chronic kidney disease, unspecified; F43.22 Adjustment disorder with anxiety; R45.851 Suicidal ideations; F17.200 Nicotine dependence, unspecified, uncomplicated; F12.10 Cannabis abuse, uncomplicated
CPT/HCPCS: 36415; 74177; 76700; 80053; 80320; 80324; 80345; 80346; 80349; 80353; 80358; 80361; 81001; 82150; 83690; 83735; 83992; 84100; 84403; 85025; 87040; 87045; 87177; 87209; 87230; 87338; 89055; 96365; 96374; 99285; C9113; G0328; G0378; J0744; J1650; J1885; J2270; J2405; J3475; J7040; Q9967